=== PATIENT | female | born 1995 | race Caucasian/White ===

== ENCOUNTER 2019-04-20 11:52 | Emergency (ER) | payer BC ==
[2019-04-20] MEDS ORDERED: ONDANSETRON 4 MG (ODT) TAB ONE (14:30)
--- NOTE | 2019-04-20 14:51 | ER ---
Nurse's Notes [facility] Name: Alexa Luna Age: 23 yrs Sex: Female : 1995 Arrival Date: 04/20/2019 Time: 11:54 Bed 11 Private MD: Mark Holland H Diagnosis: Acute upper respiratory infection, unspecified;Nasal congestion Presentation: 04/20 12:02 Presenting complaint: Patient states: woke up at 2 am, nose congestion, no appetite, iw chills, body aches. Transition of care: patient was not received from another setting of care. Onset of symptoms was April 20, 2019. Risk Assessment: Do you want to hurt yourself or someone else? Patient reports no desire to harm self or others. Initial Sepsis Screen: Does the patient meet any 2 criteria? No. Patient's initial sepsis screen is negative. Does the patient have a suspected source of infection? No. Patient's initial sepsis screen is negative. Care prior to arrival: None. 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 - Social history:: Smoking status: Patient uses tobacco products, denies chronic smoking, but will smoke occasionally. - Ebola Screening: : Patient negative for fever greater than or equal to 101.5 degrees Fahrenheit, and additional compatible Ebola Virus Disease symptoms Patient denies exposure to infectious person Patient denies travel to an Ebola-affected area in the 21 days before illness onset No symptoms or risks identified at this time. Screenin:52 Abuse screen: Denies threats or abuse. Denies injuries from another. Nutritional iw screening: No deficits noted. Tuberculosis screening: No symptoms or risk factors identified. Fall Risk None identified. Assessment: 12:00 General: Appears in no apparent distress. Behavior is calm, cooperative. Pain: iw Complains of pain in head. Neuro: Level of Consciousness is awake, alert, obeys commands, Oriented to person, place, time, situation. Cardiovascular: Patient's skin is warm and dry. Respiratory: Respiratory effort is even, unlabored. 14:38 Reassessment: Patient appears in no apparent distress at this time. Patient and/or ss family updated on plan of care and expected duration. Pain level reassessed. Patient is alert, oriented x 3, equal unlabored respirations, skin warm/dry/pink. pt c/o mild nausea. Zofran given per OCT. Vital Signs: 12:04 BP 131 / 74; Pulse 98; Resp 16; Temp 98.6; Pulse Ox 100% on R/A; Weight 57.15 kg; iw Height 5 ft. 4 in. (162.56 cm); 12:04 Body Mass Index 21.63 (57.15 kg, 162.56 cm) iw ED Course: 11:54 Patient arrived in ED. ag5 11:56 Mark Holland DO is Private Physician. ag5 12:03 Triage completed. iw 12:04 Arm band placed on. iw 12:52 [facility]C [facility]. snw 12:52 Esequiel Sales MD is Attending Physician. snw 13:51 Amber Bingham, ISABEL is Primary Nurse. iw 14:38 Patient has correct armband on for positive identification. Bed in low position. Call ss light in reach. 14:38 No provider procedures requiring assistance completed. Patient did not have IV access ss during this emergency room visit. 14:49 Mark Holland DO is Referral Physician. snw Administered Medications: 14:29 Drug: Zofran 4 mg Route: PO; ss 15:10 Follow up: Response: No adverse reaction; Nausea is decreased ss 15:01 Drug: Afrin Drops (0.05 %) 1 sprays Route: Intranasal; Site: both nares; iw 15:01 Drug: ZyrTEC - Cetirizine 10 mg Route: PO; iw 15:10 Follow up: Response: Medication administered at discharge. ss 15:01 Drug: predniSONE 40 mg Route: PO; iw 15:10 Follow up: Response: Medication administered at discharge. ss 15:01 Drug: Pepcid 20 mg Route: PO; iw 15:10 Follow up: Response: Medication administered at discharge. ss Outcome: 14:50 Discharge ordered by MD. ferguson 15:09 Discharged to home ambulatory. ss 15:09 Condition: good 15:09 Instructed on discharge instructions, follow up and referral plans. medication usage, Demonstrated understanding of instructions, follow-up care, medications, Prescriptions given X 3. 15:10 Patient left the ED. Signatures: Jennifer Jane, PROJECT INTERNSHIP-C PROJECT INTERNSHIP-Csnw Amber Bingham RN RN Luz Juarez RN RN González Hogue ag5 Corrections: (The following items were deleted from the chart) 12:05 12:04 PSHx: None; iw iw 12:06 12:04 BP 131 / 74; Pulse 98bpm; [facility]
--- NOTE | 2019-04-20 14:51 | EDPHYS ---
Physician Documentation [facility] Name: Alexa Luna Age: 23 yrs Sex: Female : 1995 Arrival Date: 04/20/2019 Time: 11:54 Bed 11 Private MD: Mark Holland H ED Physician Esequiel Sales HPI: 04/20 15:34 This 23 yrs old Female presents to ER via Ambulatory with complaints of Cold snw Symptoms. 15:34 The patient or guardian reports cough, hoarse voice, sore throat, nasal congestion. snw Onset: The symptoms/episode began/occurred suddenly, yesterday. Modifying factors: The symptoms are alleviated by nothing. Associated signs and symptoms: Pertinent positives: nausea, rhinorrhea, sore throat, sinus pressure, congestion. Severity of symptoms: At their worst the symptoms were moderate. It is unknown whether or not the patient has had similar symptoms in the past. The patient has not recently seen a physician. 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 - Social history:: Smoking status: Patient uses tobacco products, denies chronic smoking, but will smoke occasionally. - Ebola Screening: : Patient negative for fever greater than or equal to 101.5 degrees Fahrenheit, and additional compatible Ebola Virus Disease symptoms Patient denies exposure to infectious person Patient denies travel to an Ebola-affected area in the 21 days before illness onset No symptoms or risks identified at this time. ROS: 15:33 Eyes: Negative for injury, pain, redness, and discharge. snw 15:33 Neck: Negative for injury, pain, and swelling, Cardiovascular: Negative for chest pain, palpitations, and edema. 15:33 Back: Negative for injury and pain, : Negative for injury, bleeding, discharge, and swelling, MS/Extremity: Negative for injury and deformity, Skin: Negative for injury, rash, and discoloration, Neuro: Negative for headache, weakness, numbness, tingling, and seizure. 15:33 Constitutional: Positive for body aches, fatigue, malaise. 15:33 ENT: Positive for nasal discharge, sinus congestion, sore throat. 15:33 Respiratory: Positive for cough. 15:33 Abdomen/GI: Positive for nausea. Exam: 14:55 Head/Face: Normocephalic, atraumatic. Eyes: Pupils equal round and reactive to light, snw extra-ocular motions intact. Lids and lashes normal. Conjunctiva and sclera are non-icteric and not injected. Cornea within normal limits. Periorbital areas with no swelling, redness, or edema. 14:55 Neck: Trachea midline, no thyromegaly or masses palpated, and no cervical lymphadenopathy. Supple, full range of motion without nuchal rigidity, or vertebral point tenderness. No Meningismus. Chest/axilla: Normal chest wall appearance and motion. Nontender with no deformity. No lesions are appreciated. Cardiovascular: Regular rate and rhythm with a normal S1 and S2. No gallops, murmurs, or rubs. Normal PMI, no JVD. No pulse deficits. Respiratory: Lungs have equal breath sounds bilaterally, clear to auscultation and percussion. No rales, rhonchi or wheezes noted. No increased work of breathing, no retractions or nasal flaring. Abdomen/GI: Soft, non-tender, with normal bowel sounds. No distension or tympany. No guarding or rebound. No evidence of tenderness throughout. Back: No spinal tenderness. No costovertebral tenderness. Full range of motion. Skin: Warm, dry with normal turgor. Normal color with no rashes, no lesions, and no evidence of cellulitis. MS/ Extremity: Pulses equal, no cyanosis. Neurovascular intact. Full, normal range of motion. Neuro: Awake and alert, GCS 15, oriented to person, place, time, and situation. Cranial nerves II-XII grossly intact. Motor strength 5/5 in all extremities. Sensory grossly intact. Cerebellar exam normal. Normal gait. Psych: Awake, alert, with orientation to person, place and time. Behavior, mood, and affect are within normal limits. 14:55 Constitutional: The patient appears alert, awake, anxious, uncomfortable. 14:55 ENT: TM's: erythema, that is mild, on the left, Nose: Nasal mucosa: edematous, erythematous, Mouth: is normal, Posterior pharynx: is normal, Voice: is hoarse. Vital Signs: 12:04 BP 131 / 74; Pulse 98; Resp 16; Temp 98.6; Pulse Ox 100% on R/A; Weight 57.15 kg; iw Height 5 ft. 4 in. (162.56 cm); 12:04 Body Mass Index 21.63 (57.15 kg, 162.56 cm) iw MDM: 13:59 Patient medically screened. snw 15:32 Data reviewed: vital signs, nurses notes. Data interpreted: Pulse oximetry: on room air snw is 100 %. Interpretation: normal. Counseling: I had a detailed discussion with the patient and/or guardian regarding: the historical points, exam findings, and any diagnostic results supporting the discharge/admit diagnosis, lab results, the need for outpatient follow up, to return to the emergency department if symptoms worsen or persist or if there are any questions or concerns that arise at home. Special discussion: Based on the history and exam findings, there is no indication for further emergent testing or inpatient evaluation. I discussed with the patient/guardian the need to see the primary care provider for further evaluation of the symptoms. 04/20 12:06 Order name: Flu; Complete Time: 13:28 04/20 12:06 Order name: Strep; Complete Time: 13:17 04/20 13:15 Order name: Throat Culture EDMS Administered Medications: 14:29 Drug: Zofran 4 mg Route: PO; ss 15:10 Follow up: Response: No adverse reaction; Nausea is decreased ss 15:01 Drug: Afrin Drops (0.05 %) 1 sprays Route: Intranasal; Site: both nares; iw 15:01 Drug: ZyrTEC - Cetirizine 10 mg Route: PO; iw 15:10 Follow up: Response: Medication administered at discharge. ss 15:01 Drug: predniSONE 40 mg Route: PO; iw 15:10 Follow up: Response: Medication administered at discharge. ss 15:01 Drug: Pepcid 20 mg Route: PO; iw 15:10 Follow up: Response: Medication administered at discharge. ss Disposition: 18:50 Co-signature as Attending Physician, Esequiel Sales MD. ma2 Disposition: 04/20/19 14:50 Discharged to Home. Impression: Acute upper respiratory infection, unspecified, Nasal congestion. - Condition is Stable. - Discharge Instructions: Upper Respiratory Infection, Adult, Cool Mist Vaporizer, Rehydration, Adult. - Prescriptions for Zyrtec 10 mg Oral Tablet - take 1 tablet by ORAL route once daily As needed; 20 tablet. Prednisone 20 mg Oral Tablet - take 2 tablet by ORAL route once daily for 5 days; 10 tablet. Pepcid 20 mg Oral Tablet - take 1 tablet by ORAL route once daily; 20 tablet. - Medication Reconciliation Form, Thank You Letter, Antibiotic Education, Prescription Opioid Use form. - Follow up: Mark Holland DO; When: 5 - 6 days; Reason: Recheck today's complaints, Continuance of care, Re-evaluation by your physician. Follow up: Emergency Department; When: As needed; Reason: Worsening of condition. Signatures: Dispatcher [employer] EDMS Jennifer Jane, MECHE-C SQUARING SHEAR OPERATOR-Csnw Amber Bingham RN RN iw Smirch, Shelby, RN RN Esequiel Sales MD MD ma2 Corrections: (The following items were deleted from the chart) 12:05 12:04 PSHx: None; [facility] 15:10 14:50 04/20/2019 14:50 Discharged to Home. Impression: Acute upper respiratory ss infection, unspecified; Nasal congestion. Condition is Stable. Forms are Medication Reconciliation Form, Thank You Letter, Antibiotic Education, Prescription Opioid Use. Follow up: Mark Holland; When: 5 - 6 days; Reason: Recheck today's complaints, Continuance of care, Re-evaluation by your physician. Follow up: Emergency Department; When: As needed; Reason: Worsening of condition. snw
[2019-04-20] MEDS ORDERED: CETIRIZINE HCL 5 MG TABLET ONE (14:56)
[2019-04-20] MEDS ORDERED: FAMOTIDINE 20 MG TAB ONE (14:56)
[2019-04-20] MEDS ORDERED: predniSONE 20 MG TAB ONE (14:56)
[2019-04-20] MEDS ORDERED: OXYMETAZOLINE HCL 0.05% 15ML NAS ONE (14:57)
[2019-04-20 15:20] VITALS: BP 131/74; TEMP 98.6; O2SAT 100
== END 2019-04-20 15:10 | disposition home or self-care (01) ==
LOC: ER 11:52
DX: J06.9 Acute upper respiratory infection, unspecified (principal); R09.81 Nasal congestion
CPT/HCPCS: 87070; 87081; 87804; 99283; J7512

== ENCOUNTER 2019-04-21 16:00 | Emergency (ER) | payer BC ==
[2019-04-21] MEDS ORDERED: NA CHLORIDE 0.9% 1,000 ML ONE (16:30)
[2019-04-21] MEDS ORDERED: ONDANSETRON 4 MG/2 ML VIAL ONE (16:30)
[2019-04-21 16:57] LABS: Basophils % 0.2 % (0-1.3); Hematocrit 39.8 % (36.0-45.0); Lymphocytes % 13.2 % (15.3-44.8); MPV 9.2 fL (7.6-11.3)
[2019-04-21 17:09] LABS: ALT/SGPT 24 U/L (12-78); AST/SGOT 14 U/L (15-37); Albumin 4.4 g/dL (3.4-5.0); Alkaline Phosphatase 83 U/L (45-117); BUN Blood Urea Nitrogen 13 mg/dL (7-18); Bicarbonate 31 mmol/L (21-32); Bilirubin Direct < 0.1 mg/dL (0-0.2); Bilirubin Total 0.2 mg/dL (0.2-1.0); Glucose Level 80 mg/dL (74-106); Lipase 126 U/L (73-393); Potassium 3.9 mmol/L (3.5-5.1); Protein, Total 7.8 g/dL (6.4-8.2); Sodium Level 142 mmol/L (136-145)
[2019-04-21 17:09] LABS: Urine Blood 2+ (NEG); Urine Glucose NEGATIVE (NEG); Urine Protein NEGATIVE (NEG); Urine Specific Gravity 1.015 (1.005-1.030); Urine pH 6.5 (5.0-7.0)
[2019-04-21] MEDS ORDERED: LORazepam 2 MG/ML VIAL ONE (18:50)
--- NOTE | 2019-04-21 19:20 | ER ---
Nurse's Notes [facility] Name: Alexa Luna Age: 23 yrs Sex: Female : 1995 Arrival Date: 04/21/2019 Time: 16:02 Bed 19 Private MD: Diagnosis: Acute pharyngitis;Acute serous otitis media;Vomiting Presentation: 04/21 16:03 Presenting complaint: N/V and productive cough with yellow sputum x 2 days. Not hb tolerating fluids. Transition of care: patient was not received from another setting of care. Onset of symptoms was April 19, 2019. Risk Assessment: Do you want to hurt yourself or someone else? Patient reports no desire to harm self or others. Initial Sepsis Screen: Does the patient meet any 2 criteria? No. Patient's initial sepsis screen is negative. Does the patient have a suspected source of infection? No. Patient's initial sepsis screen is negative. Care prior to arrival: None. 16:03 Method Of Arrival: Ambulatory hb 16:03 Acuity: MANJEET 3 hb Historical: - Allergies: 16:05 Seroquel; hb - Home Meds: 16:05 buprenorphine HCl 0.3 mg/mL injection soln [Active]; hb - PMHx: 16:05 Anxiety; hb - PSHx: 16:05 leg; hb - Immunization history:: Adult Immunizations up to date. - Social history:: Smoking status: Patient/guardian denies using tobacco. - Ebola Screening: : No symptoms or risks identified at this time. Screenin:20 Abuse screen: Denies threats or abuse. Denies injuries from another. Nutritional sg screening: No deficits noted. Tuberculosis screening: No symptoms or risk factors identified. Never had TB. Fall Risk None identified. Assessment: 16:20 General: Appears in no apparent distress. well groomed, well developed, well nourished, sg Behavior is calm, cooperative, appropriate for age. Pain: Complains of pain in suprapubic area Quality of pain is described as aching, crampy. Neuro: Level of Consciousness is awake, alert, obeys commands, Oriented to person, place, time, Speech is normal, Facial symmetry appears normal. Cardiovascular: Capillary refill is brisk in bilateral fingers Patient's skin is warm and dry. Chest pain is denied. Respiratory: Airway is patent Respiratory effort is even, unlabored, Respiratory pattern is regular, symmetrical. GI: Abdomen is round non-distended, Bowel sounds present X 4 quads. Reports lower abdominal pain, nausea. : No signs and/or symptoms were reported regarding the genitourinary system. EENT: No signs and/or symptoms were reported regarding the EENT system. Derm: Skin is pink, warm \T\ dry. Musculoskeletal: Circulation, motion, and sensation intact. Range of motion: intact in all extremities, Swelling absent. 18:50 General: Appears Behavior is agitated, crying, restless, orders received for 1 mg sg Ativan IVP per Schuyler LINDQUIST. 19:37 Reassessment: Patient appears in no apparent distress at this time. Patient and/or jb4 family updated on plan of care and expected duration. Pain level reassessed. Patient is alert, oriented x 3, equal unlabored respirations, skin warm/dry/pink. PT verbalized understanding of d/c and follow up instructions. Ambulated out of ED with steady gait with . Vital Signs: 16:04 BP 122 / 91; Pulse 90; Resp 16; Temp 98.9(O); Pulse Ox 100% on R/A; Weight 57.15 kg; hb Height 5 ft. 4 in. (162.56 cm); Pain 0/10; 18:21 BP 125 / 82; Pulse 51; Resp 14; Temp 98.5(TE); Pulse Ox 98% on R/A; mh5 18:43 Temp 98.7(O); mh5 19:37 BP 107 / 85; Pulse 85; Resp 16; Pulse Ox 100% on R/A; jb4 16:04 Body Mass Index 21.63 (57.15 kg, 162.56 cm) hb ED Course: 16:02 Patient arrived in ED. rg4 16:04 Triage completed. hb 16:04 Arm band placed on left wrist. hb 16:05 Patient has correct armband on for positive identification. Bed in low position. Call mh5 light in reach. Warm blanket given. Pulse ox on. NIBP on. 16:07 Guru Yeung PA is PHCP. [facility] 16:07 Isaias Pena MD is Attending Physician. [facility] 16:07 Torito Durán PA is PHCP. cp 16:46 Bai, Alvaro, RN is Primary Nurse. 16:52 No provider procedures requiring assistance completed. Initial lab(s) drawn, by ED sg staff, sent to lab. Inserted saline lock: 22 gauge in right antecubital area, using aseptic technique. Blood collected. 19:37 IV discontinued, intact, bleeding controlled, No redness/swelling at site. Pressure jb4 dressing applied. Administered Medications: 16:46 Drug: Zofran 4 mg Route: IVP; Site: right antecubital; sg 16:46 Drug: NS 0.9% 1000 ml Route: IV; Rate: 1 bolus; Site: right antecubital; sg 18:55 Drug: Ativan 1 mg Route: IVP; Site: right antecubital; sg 19:30 Follow up: Response: No adverse reaction; Marked relief of symptoms jb4 Outcome: 19:18 Discharge ordered by . estephanie 19:37 Discharged to home ambulatory, with family. jb4 19:37 Condition: stable 19:37 Discharge instructions given to patient, family, Instructed on discharge instructions, follow up and referral plans. medication usage, Demonstrated understanding of instructions, follow-up care, medications, Prescriptions given X 3. 19:39 Patient left the ED. jb4 Signatures: Alvaro Bai RN RN Guru Yeung PA PA jmm Page, Corey, PA PA cp Baxter, Heather, RN RN hb Garcia, Rubi [facility] Henry Fowler RN RN jb4 Martinez, Maria [facility]
--- NOTE | 2019-04-21 19:20 | EDPHYS ---
Physician Documentation [facility] Name: Alexa Luna Age: 23 yrs Sex: Female : 1995 Arrival Date: 04/21/2019 Time: 16:02 Bed 19 Private MD: ED Physician Isaias Pena HPI: 04/21 16:21 This 23 yrs old Female presents to ER via Ambulatory with complaints of jmm Vomiting, Weakness. 16:21 The patient presents to the emergency department with vomiting. Onset: The jmm symptoms/episode began/occurred gradually, 1 day(s) ago. The symptoms are aggravated by nothing. The symptoms are alleviated by nothing. This is a 23 year old female with a history of anxiety that presents to the ED with complaints of cough, congestion with vomiting beginning last night. Patient denies diarrhea. Denies abdominal pain. . Historical: - Allergies: 16:05 Seroquel; hb - Home Meds: 16:05 buprenorphine HCl 0.3 mg/mL injection soln [Active]; hb - PMHx: 16:05 Anxiety; hb - PSHx: 16:05 leg; hb - Immunization history:: Adult Immunizations up to date. - Social history:: Smoking status: Patient/guardian denies using tobacco. - Ebola Screening: : No symptoms or risks identified at this time. ROS: 16:21 Constitutional: Negative for fever, chills, and weight loss, Cardiovascular: Negative jmm for chest pain, palpitations, and edema, Respiratory: Negative for shortness of breath, cough, wheezing, and pleuritic chest pain. 16:21 Abdomen/GI: Positive for vomiting. 16:21 All other systems are negative. Exam: 16:21 Head/Face: atraumatic. Eyes: EOMI, no conjunctival erythema appreciated ENT: Moist jmm Mucus Membranes Neck: Trachea midline, Supple Chest/axilla: Normal chest wall appearance and motion. Cardiovascular: Regular rate and rhythm. No edema appreciated Respiratory: Normal respirations, no respiratory distress appreciated 16:21 Skin: General appearance color normal MS/ Extremity: Moves all extremities, no obvious deformities appreciated, no edema noted to the lower extremities Neuro: Awake and alert, normal gait Psych: Behavior is normal, Mood is normal, Patient is cooperative and pleasant 16:21 Constitutional: The patient appears in no acute distress, alert, awake. 16:21 Abdomen/GI: Inspection: abdomen appears normal, Bowel sounds: normal, Palpation: abdomen is soft and non-tender, in all quadrants, soft. 16:21 Back: pain, that is moderate. 19:17 ENT: TM's: bulging, on the left, erythema. [facility] Vital Signs: 16:04 BP 122 / 91; Pulse 90; Resp 16; Temp 98.9(O); Pulse Ox 100% on R/A; Weight 57.15 kg; hb Height 5 ft. 4 in. (162.56 cm); Pain 0/10; 18:21 BP 125 / 82; Pulse 51; Resp 14; Temp 98.5(TE); Pulse Ox 98% on R/A; mh5 18:43 Temp 98.7(O); mh5 19:37 BP 107 / 85; Pulse 85; Resp 16; Pulse Ox 100% on R/A; jb4 16:04 Body Mass Index 21.63 (57.15 kg, 162.56 cm) hb MDM: 16:16 Patient medically screened. [facility] 19:17 Data reviewed: vital signs, nurses notes. Counseling: I had a detailed discussion with [facility] the patient and/or guardian regarding: the historical points, exam findings, and any diagnostic results supporting the discharge/admit diagnosis, lab results, the need for outpatient follow up, to return to the emergency department if symptoms worsen or persist or if there are any questions or concerns that arise at home. ED course: Patient is alert and non toxic in appearance in the ED. Patient tolerates PO in the ED. Patient advised to follow up with pcp and otherwise given strict return precautions. . 04/21 16:20 Order name: Basic Metabolic Panel; Complete Time: 17:23 [facility] 04/21 16:20 Order name: CBC with Diff; Complete Time: 17:23 [facility] 04/21 16:20 Order name: Creatinine for Radiology; Complete Time: 17:23 [facility] 04/21 16:20 Order name: Hepatic Function; Complete Time: 17:23 [facility] 04/21 16:20 Order name: Lipase; Complete Time: 17:23 [facility] 04/21 16:53 Order name: Urine Dipstick--Ancillary (enter results); Complete Time: 17:23 nv 04/21 16:20 Order name: IV Saline Lock; Complete Time: 16:49 [facility] 04/21 16:20 Order name: Labs collected and sent; Complete Time: 16:49 [facility] 04/21 16:20 Order name: Urine Dipstick-Ancillary (obtain specimen); Complete Time: 17:06 [facility] Administered Medications: 16:46 Drug: Zofran 4 mg Route: IVP; Site: right antecubital; sg 16:46 Drug: NS 0.9% 1000 ml Route: IV; Rate: 1 bolus; Site: right antecubital; sg 18:55 Drug: Ativan 1 mg Route: IVP; Site: right antecubital; sg 19:30 Follow up: Response: No adverse reaction; Marked relief of symptoms jb4 Disposition: 04/21/19 19:18 Discharged to Home. Impression: Acute pharyngitis, Acute serous otitis media, Vomiting. - Condition is Stable. - Discharge Instructions: Otitis Media, Adult, Nausea and Vomiting, Adult, Pharyngitis. - Prescriptions for cefdinir 300 mg Oral capsule - take 1 capsule by ORAL route every 12 hours; 20 capsule. Medrol (Sukhjinder) 4 mg Oral Tablets, Dose Pack - take 1 tablet by ORAL route as directed - follow package instructions; 1 packet. promethazine 6.25 mg/5 mL Oral Syrup - take 10 milliliters by ORAL route 3 times per day As needed; 200 milliliter. - Medication Reconciliation Form, Thank You Letter, Antibiotic Education, Prescription Opioid Use, Family Work Release form. - Follow up: Private Physician; When: 2 - 3 days; Reason: Recheck today's complaints, Continuance of care, Re-evaluation by your physician. Addendum: 04/22/2019 20:55 Co-signature as Attending Physician, Isaias Pena MD. r n Signatures: Dispatcher [employer] EDMS Alvaro Bai RN RN sg Guru Yeung PA PA [facility] Isaias Pena MD MD rn Baxter, Heather, RN RN hb Bryson, James, RN RN jb4 Corrections: (The following items were deleted from the chart) 04/21 19:39 19:18 04/21/2019 19:18 Discharged to Home. Impression: Acute pharyngitis; Acute serous jb4 otitis media; Vomiting. Condition is Stable. Forms are Medication Reconciliation Form, Thank You Letter, Antibiotic Education, Prescription Opioid Use. Follow up: Private Physician; When: 2 - 3 days; Reason: Recheck today's complaints, Continuance of care, Re-evaluation by your physician. estephanie
[2019-04-21 20:22] VITALS: TEMP 98.7
[2019-04-21 20:23] VITALS: BP 107/85; O2SAT 100
== END 2019-04-21 19:39 | disposition home or self-care (01) ==
LOC: ER 16:00
DX: H65.02 Acute serous otitis media, left ear (principal); J02.9 Acute pharyngitis, unspecified; F41.9 Anxiety disorder, unspecified; Z88.8 Allergy status to other drugs, medicaments and biological substances
CPT/HCPCS: 85025; 80048; 36415; 80076; 81003; 83690; 96375; 96374; 99284; J7030; J2405

== ENCOUNTER 2019-06-30 23:25 | Emergency (ER) | payer BC ==
--- OUTSIDE RECORDS SUMMARY | 2019-06-30 23:27 | XMS REPORT ---
:1995 [facility] Address [address] [place] [address] Dr. Telles [address] [place] [id number] Care Team Providers Name Role Phone Unavailable Unavailable Unavailable Problems This patient has no known problems. Allergies, Adverse Reactions, Alerts This patient has no known allergies or adverse reactions. Medications This patient has no known medications. Encounters Start End Encounter Admission Attending Care Care Encounter Date/Time Date/Time Type Type Clinicians Facility Department ID 2019-06-08 2019-06-08 Emergency E [id number] 20:13:00 20:13:00
--- NOTE | 2019-07-01 00:07 | ER ---
Nurse's Notes [facility] Name: Alexa Luna Age: 23 yrs Sex: Female : 1995 Arrival Date: 06/30/2019 Time: 23:30 Bed 20 Private MD: Diagnosis: Cutaneous abscess of buttock Presentation: 06/30 23:57 Presenting complaint: Patient states: Redness and pain on right butt cheek that started wh last night. Transition of care: patient was not received from another setting of care. Onset of symptoms was June 29, 2019. Risk Assessment: Do you want to hurt yourself or someone else? Patient reports no desire to harm self or others. Initial Sepsis Screen: Does the patient meet any 2 criteria? No. Patient's initial sepsis screen is negative. Does the patient have a suspected source of infection? No. Patient's initial sepsis screen is negative. Care prior to arrival: None. 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 - Social history:: Smoking status: Patient uses tobacco products, denies chronic smoking, but will smoke occasionally. - Ebola Screening: : Patient negative for fever greater than or equal to 101.5 degrees Fahrenheit, and additional compatible Ebola Virus Disease symptoms Patient denies exposure to infectious person. Screenin/23 00:01 Abuse screen: Denies threats or abuse. Denies injuries from another. Nutritional screening: No deficits noted. Tuberculosis screening: No symptoms or risk factors identified. Fall Risk None identified. Assessment: 06/30 23:59 General: Appears in no apparent distress. Behavior is calm, cooperative, appropriate for age. Pain: Complains of pain in right gluteus ralph Pain does not radiate. Pain began 1 day ago. Neuro: Level of Consciousness is awake, alert, obeys commands, Oriented to person, place, time, situation, Appropriate for age. Cardiovascular: Capillary refill < 3 seconds. Respiratory: Airway is patent Respiratory effort is even, unlabored, Respiratory pattern is regular, symmetrical. GI: Abdomen is flat, non-distended. : No signs and/or symptoms were reported regarding the genitourinary system. EENT: No signs and/or symptoms were reported regarding the EENT system. Derm: Skin is intact, is healthy with good turgor, Skin is pink, warm \T\ dry. normal. Musculoskeletal: Circulation, motion, and sensation intact. Vital Signs: 23:40 BP 112 / 61; Pulse 99; Resp 18; Temp 98.0(O); Pulse Ox 100% on R/A; oe ED Course: 23:30 Patient arrived in ED. cf2 23:42 Andre Vora is Primary Nurse. 23:58 Triage completed. 07/01 00:00 Carole Salas FNP-C is PHCP. 00:00 Torito Taveras MD is Attending Physician. 00:01 Arm band placed on. 00:01 Patient has correct armband on for positive identification. Bed in low position. Call light in reach. Side rails up X 1. Pulse ox on. NIBP on. 00:18 No provider procedures requiring assistance completed. Patient did not have IV access during this emergency room visit. Administered Medications: 00:15 Drug: Bactrim (160 mg-800 mg (DS) 1 tablet Route: PO; 00:18 Follow up: Response: No adverse reaction Outcome: 00:06 Discharge ordered by . 00:18 Discharged to home ambulatory. 00:18 Condition: stable 00:18 Discharge instructions given to patient, Instructed on discharge instructions, follow up and referral plans. medication usage, POC Skin Abscess Demonstrated understanding of instructions, follow-up care, medications, wound care, POC Prescriptions given X 1. 00:19 Patient left the ED. Signatures: Carole Salas FNP-C FNP-Ilir Mercedes Andre Vora Marilynn Haddad cf2
--- NOTE | 2019-07-01 00:08 | EDPHYS ---
Physician Documentation [facility] Name: Alexa Luna Age: 23 yrs Sex: Female : 1995 Arrival Date: 06/30/2019 Time: 23:30 Bed 20 Private MD: ED Physician Torito Taveras HPI: 07/01 00:42 This 23 yrs old Female presents to ER via Ambulatory with complaints of Bump kb on Butt. 00:42 The patient presents with an abscess of the right gluteus ralph. Description: kb erythematous, swollen. Onset: The symptoms/episode began/occurred 3 day(s) ago. Possible cause(s): unknown. Associated signs and symptoms: Pertinent positives: erythema. Modifying factors: the symptoms are alleviated by nothing, the symptoms are aggravated by pressure, touching. Severity of symptoms: At their worst the symptoms were mild, in the emergency department the symptoms are unchanged. The patient has not experienced similar symptoms in the past. The patient has not recently seen a physician. 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 - Social history:: Smoking status: Patient uses tobacco products, denies chronic smoking, but will smoke occasionally. - Ebola Screening: : Patient negative for fever greater than or equal to 101.5 degrees Fahrenheit, and additional compatible Ebola Virus Disease symptoms Patient denies exposure to infectious person. ROS: 07/01 00:38 Constitutional: Negative for fever, chills, and weight loss, Neck: Negative for injury, kb pain, and swelling, Cardiovascular: Negative for chest pain, palpitations, and edema, Respiratory: Negative for shortness of breath, cough, wheezing, and pleuritic chest pain, Abdomen/GI: Negative for abdominal pain, nausea, vomiting, diarrhea, and constipation, Back: Negative for injury and pain, MS/Extremity: Negative for injury and deformity, Neuro: Negative for headache, weakness, numbness, tingling, and seizure. Skin: Positive for abscess, of the right gluteus ralph. Exam: 00:38 Constitutional: This is a well developed, well nourished patient who is awake, alert, kb and in no acute distress. Head/Face: Normocephalic, atraumatic. Neck: Trachea midline, no thyromegaly or masses palpated, and no cervical lymphadenopathy. Supple, full range of motion without nuchal rigidity, or vertebral point tenderness. No Meningismus. Chest/axilla: Normal chest wall appearance and motion. Nontender with no deformity. No lesions are appreciated. Cardiovascular: Regular rate and rhythm with a normal S1 and S2. No gallops, murmurs, or rubs. Normal PMI, no JVD. No pulse deficits. Respiratory: Lungs have equal breath sounds bilaterally, clear to auscultation and percussion. No rales, rhonchi or wheezes noted. No increased work of breathing, no retractions or nasal flaring. Abdomen/GI: Soft, non-tender, with normal bowel sounds. No distension or tympany. No guarding or rebound. No evidence of tenderness throughout. MS/ Extremity: Pulses equal, no cyanosis. Neurovascular intact. Full, normal range of motion. Neuro: Awake and alert, GCS 15, oriented to person, place, time, and situation. Cranial nerves II-XII grossly intact. Motor strength 5/5 in all extremities. Sensory grossly intact. Cerebellar exam normal. Normal gait. 00:38 Skin: abscess, that is small, of the right gluteus ralph, with induration. Vital Signs: 06/30 23:40 BP 112 / 61; Pulse 99; Resp 18; Temp 98.0(O); Pulse Ox 100% on R/A; oe MDM: 07/01 00:01 Patient medically screened. kb 00:05 Data reviewed: vital signs, nurses notes. Data interpreted: Pulse oximetry: on room air kb is 100 %. Interpretation: normal. Counseling: I had a detailed discussion with the patient and/or guardian regarding: the historical points, exam findings, and any diagnostic results supporting the discharge/admit diagnosis, the need for outpatient follow up, a family practitioner, to return to the emergency department if symptoms worsen or persist or if there are any questions or concerns that arise at home. Administered Medications: 00:15 Drug: Bactrim (160 mg-800 mg (DS) 1 tablet Route: PO; wh 00:18 Follow up: Response: No adverse reaction Disposition: 09:02 Co-signature as Attending Physician, Torito Taveras MD I agree with the assessment and [facility] plan of care. Disposition: 07/01/19 00:06 Discharged to Home. Impression: Cutaneous abscess of buttock. - Condition is Stable. - Discharge Instructions: Skin Abscess, [id number]. - Prescriptions for Bactrim DS 800- 160 mg Oral Tablet - take 1 tablet by ORAL route every 12 hours for 10 days; 20 tablet. - Medication Reconciliation Form, Thank You Letter, Antibiotic Education, Prescription Opioid Use form. - Follow up: Emergency Department; When: As needed; Reason: Worsening of condition. Follow up: Private Physician; When: 2 - 3 days; Reason: Recheck today's complaints, Continuance of care, Re-evaluation by your physician. Signatures: Carole Salas, DERMATOLOGIST AND DERMATOPATHOLOGIST-C DERMATOLOGIST AND DERMATOPATHOLOGIST-Torito Willams MD MD cha Hab[place], Winsy Corrections: (The following items were deleted from the chart) 00:19 00:06 07/01/2019 00:06 Discharged to Home. Impression: Cutaneous abscess of buttock. Condition is Stable. Forms are Medication Reconciliation Form, Thank You Letter, Antibiotic Education, Prescription Opioid Use. Follow up: Emergency Department; When: As needed; Reason: Worsening of condition. Follow up: Private Physician; When: 2 - 3 days; Reason: Recheck today's complaints, Continuance of care, Re-evaluation by your physician. kb
[2019-07-01] MEDS ORDERED: SMZ./TMP. 800/160 MG TABLET ONE (00:16)
[2019-07-01 00:50] VITALS: BP 112/61; TEMP 98; O2SAT 100
== END 2019-07-01 00:19 | disposition home or self-care (01) ==
LOC: ER 23:25
DX: L02.31 Cutaneous abscess of buttock (principal); F41.9 Anxiety disorder, unspecified; Z88.8 Allergy status to other drugs, medicaments and biological substances
CPT/HCPCS: 99283

== ENCOUNTER 2019-09-09 04:10 | Emergency (ER) | payer BC ==
[2019-09-09] MEDS ORDERED: NA CHLORIDE 0.9% 1,000 ML ONE (04:34)
[2019-09-09] MEDS ORDERED: LORAZEPAM 1 MG TABLET ONE (04:34)
[2019-09-09] MEDS ORDERED: ONDANSETRON 4 MG/2 ML VIAL ONE (04:34)
--- OUTSIDE RECORDS SUMMARY | 2019-09-09 04:50 | XMS REPORT ---
:1995 [facility] Address [address] [place] [address] Dr. Telles [address] [place] [id number] Care Team Providers Name Role Phone Unavailable [...]
[2019-09-09 04:55] LABS: Absolute Lymphocytes (CBC) 1.8 K/uL (0.7-4.9); Basophils % 0.3 % (0-1.3); Hematocrit 43.6 % (36.0-45.0); Lymphocytes % 15.8 % (15.3-44.8); MPV 8.9 fL (7.6-11.3); RBC Red Blood Cell Count 4.96 M/uL (3.86-4.86)
[2019-09-09 05:03] LABS: Barbiturates NEGATIVE (NEGATIVE); Benzodiazepines NEGATIVE (NEGATIVE); Cocaine NEGATIVE (NEGATIVE); METHAMPHETAM NEGATIVE (NEGATIVE); Methadone NEGATIVE (NEGATIVE); Opiates NEGATIVE (NEGATIVE); Phencyclidine NEGATIVE (NEGATIVE); THC Cannibis POSITIVE (NEGATIVE)
[2019-09-09 05:07] LABS: BUN Blood Urea Nitrogen 8 mg/dL (7-18); Bicarbonate 28 mmol/L (21-32); Glucose Level 92 mg/dL (74-106); Potassium 3.8 mmol/L (3.5-5.1); Sodium Level 140 mmol/L (136-145)
[2019-09-09 05:19] LABS: Urine Blood NEGATIVE (NEG); Urine Glucose NEGATIVE (NEG); Urine Protein NEGATIVE (NEG); Urine Specific Gravity 1.015 (1.005-1.030)
--- NOTE | 2019-09-09 06:11 | EDPHYS ---
Physician Documentation [facility] Name: Alexa Luna Age: 24 yrs Sex: Female : 1995 Arrival Date: 09/09/2019 Time: 04:14 Bed 4 Private MD: ED Physician Carlo iRos HPI: 09/09 06:51 This 24 yrs old Female presents to ER via Ambulatory with complaints of kdr Withdraw Symptoms. 06:51 The patient has been off of her Suboxone for about three days and is feeling anxious. kdr She does not want to take the medication any more. She had tried to quit before for a period of about six months and had about a two weeks of withdrawal s/s. Onset: The symptoms/episode began/occurred gradually, 3 day(s) ago. Severity of symptoms: At their worst the symptoms were moderate in the emergency department the symptoms have improved mildly. The patient has experienced a previous episode, last year. The patient has not recently seen a physician. 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 - Coronavirus screen:: The patient has NOT traveled to [place], [place], or [place] in the past 14 days. Proceed with normal triage process as indicated. - Social history:: Smoking status: Patient denies any tobacco usage or history of. - Ebola Screening: : No symptoms or risks identified at this time. ROS: 06:51 Constitutional: Negative for fever, chills, and weight loss, Eyes: Negative for injury, kdr pain, redness, and discharge, ENT: Negative for injury, pain, and discharge, Neck: Negative for injury, pain, and swelling, Cardiovascular: Negative for chest pain, palpitations, and edema, Respiratory: Negative for shortness of breath, cough, wheezing, and pleuritic chest pain, Abdomen/GI: Negative for abdominal pain, nausea, vomiting, diarrhea, and constipation, Back: Negative for injury and pain, : Negative for injury, bleeding, discharge, and swelling, MS/Extremity: Negative for injury and deformity, Skin: Negative for injury, rash, and discoloration, Allergy/Immunology: Negative for hives, rash, and allergies, Endocrine: Negative for neck swelling, polydipsia, polyuria, polyphagia, and marked weight changes, Hematologic/Lymphatic: Negative for swollen nodes, abnormal bleeding, and unusual bruising. 06:51 Neuro: Positive for dizziness, weakness, Negative for altered mental status, hearing loss, loss of consciousness, numbness, seizure activity, speech changes, syncope, near syncope, tingling, tinnitus, tremor, visual changes. 06:51 Psych: Positive for anxiety, insomnia, Negative for depression, drug dependence, alcohol dependence, auditory hallucinations, visual hallucinations, homicidal ideation, suicide gesture, suicidal ideation. Exam: 06:51 Constitutional: This is a well developed, well nourished patient who is awake, alert, kdr and in no acute distress. Head/Face: Normocephalic, atraumatic. Eyes: Pupils equal round and reactive to light, extra-ocular motions intact. Lids and lashes normal. Conjunctiva and sclera are non-icteric and not injected. Cornea within normal limits. Periorbital areas with no swelling, redness, or edema. Neck: Trachea midline, no thyromegaly or masses palpated, and no cervical lymphadenopathy. Supple, full range of motion without nuchal rigidity, or vertebral point tenderness. No Meningismus. Chest/axilla: Normal chest wall appearance and motion. Nontender with no deformity. No lesions are appreciated. Cardiovascular: Regular rate and rhythm with a normal S1 and S2. No gallops, murmurs, or rubs. Normal PMI, no JVD. No pulse deficits. Respiratory: Lungs have equal breath sounds bilaterally, clear to auscultation and percussion. No rales, rhonchi or wheezes noted. No increased work of breathing, no retractions or nasal flaring. Abdomen/GI: Soft, non-tender, with normal bowel sounds. No distension or tympany. No guarding or rebound. No evidence of tenderness throughout. Back: No spinal tenderness. No costovertebral tenderness. Full range of motion. Skin: Warm, dry with normal turgor. Normal color with no rashes, no lesions, and no evidence of cellulitis. MS/ Extremity: Pulses equal, no cyanosis. Neurovascular intact. Full, normal range of motion. Neuro: Awake and alert, GCS 15, oriented to person, place, time, and situation. Cranial nerves II-XII grossly intact. Motor strength 5/5 in all extremities. Sensory grossly intact. Cerebellar exam normal. Normal gait. Psych: Awake, alert, with orientation to person, place and time. Behavior, mood, and affect are within normal limits. Vital Signs: 04:30 BP 137 / 95; Pulse 105; Resp 16 S; Temp 97.9(O); Pulse Ox 99% on R/A; Weight 63.5 kg bb (R); Height 5 ft. 4 in. (162.56 cm) (R); 05:06 BP 135 / 87; Pulse 87; Resp 16; Pulse Ox 100% on R/A; Pain 0/10; aa1 06:20 BP 131 / 89; Pulse 84; Resp 16; Temp 97.6; Pulse Ox 99% on R/A; Pain 0/10; aa1 04:30 Body Mass Index 24.03 (63.50 kg, 162.56 cm) MDM: 06:09 Patient medically screened. kdr 06:57 Data reviewed: vital signs, nurses notes, lab test result(s), radiologic studies. kdr Counseling: I had a detailed discussion with the patient and/or guardian regarding: the historical points, exam findings, and any diagnostic results supporting the discharge/admit diagnosis, lab results, radiology results, the need for outpatient follow up. ED course: The patient improved with the interventions given. She still felt anxious but was feeling better. She was happy with the care provided and the plan for discharge and follow-up. 09/09 04:29 Order name: CBC with Diff; Complete Time: 06:08 kdr 09/09 04:29 Order name: Chem 7; Complete Time: 06:08 kdr 09/09 04:29 Order name: Urine Drug Screen; Complete Time: 06:08 kdr 09/09 04:29 Order name: ETOH Level; Complete Time: 06:08 [facility] 09/09 04:51 Order name: Urine Dipstick--Ancillary (enter results); Complete Time: 06:08 2 09/09 04:51 Order name: Urine --Ancillary (enter results); Complete Time: 06:08 [facility] 09/09 04:29 Order name: Urine Test (obtain specimen); Complete Time: 04:51 kdr Administered Medications: 04:35 Drug: Ativan 1 mg Route: PO; aa1 05:35 Follow up: Response: No adverse reaction; Marked relief of symptoms aa1 04:40 Drug: NS 0.9% 1000 ml Route: IV; Rate: 1 bolus; Site: left forearm; aa1 05:30 Follow up: IV Status: Completed infusion; IV Intake: 1000ml aa1 04:40 Drug: Zofran 4 mg Route: IVP; Site: left forearm; aa1 05:40 Follow up: Response: No adverse reaction; Nausea is decreased aa1 Disposition: 09/09/19 06:09 Discharged to Home. Impression: Anxiety disorder due to known physiological condition, Other psychoactive substance dependence with withdrawal, uncomplicated. - Condition is Stable. - Discharge Instructions: Benzodiazepine Withdrawal. - Prescriptions for Ativan 1 mg Oral Tablet - take 1 tablet by ORAL route every 8 hours As needed; 4 tablet. - Medication Reconciliation Form, Thank You Letter form. - Follow up: Private Physician; When: 2 - 3 days; Reason: If symptoms return, Further diagnostic work-up, Recheck today's complaints, Continuance of care, Re-evaluation by your physician. - Problem is an acute exacerbation. - Symptoms have improved. Signatures: Dispatcher [employer] EDLinda Chauhan RN RN aa1 Carlo Rios MD MD kdr Jolie Hankins RN RN bb Corrections: (The following items were deleted from the chart) 06:21 06:09 09/09/2019 06:09 Discharged to Home. Impression: Anxiety disorder due to known aa1 physiological condition; Other psychoactive substance dependence with withdrawal, uncomplicated. Condition is Stable. Forms are Medication Reconciliation Form, Thank You Letter, Antibiotic Education, Prescription Opioid Use. Follow up: Private Physician; When: 2 - 3 days; Reason: If symptoms return, Further diagnostic work-up, Recheck today's complaints, Continuance of care, Re-evaluation by your physician. Problem is an acute exacerbation. Symptoms have improved. kdr
--- NOTE | 2019-09-09 06:11 | ER ---
Nurse's Notes [facility] Name: Alexa Luna Age: 24 yrs Sex: Female : 1995 Arrival Date: 09/09/2019 Time: 04:14 Bed 4 Private MD: Diagnosis: Anxiety disorder due to known physiological condition;Other psychoactive substance dependence with withdrawal, uncomplicated Presentation: 09/09 04:27 Presenting complaint: Patient states: she is having withdrawal symptoms x 3 days of bb vomiting, inability to sleep after stopping her Subutex for addiction suddenly. Pt states she does not want to take Subutex anymore and thought she could ride out her symptoms but she can't. Transition of care: patient was not received from another setting of care. Onset of symptoms was September 04, 2019. Risk Assessment: Do you want to hurt yourself or someone else? Patient reports no desire to harm self or others. Initial Sepsis Screen: Does the patient meet any 2 criteria? No. Patient's initial sepsis screen is negative. Does the patient have a suspected source of infection? No. Patient's initial sepsis screen is negative. Care prior to arrival: None. 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 - Coronavirus screen:: The patient has NOT traveled to [place], [place], or [place] in the past 14 days. Proceed with normal triage process as indicated. - Social history:: Smoking status: Patient denies any tobacco usage or history of. - Ebola Screening: : No symptoms or risks identified at this time. Screenin:25 Abuse screen: Denies threats or abuse. Denies injuries from another. Nutritional aa1 screening: No deficits noted. Tuberculosis screening: No symptoms or risk factors identified. Fall Risk None identified. Assessment: 04:25 General: Appears in no apparent distress. comfortable, Behavior is calm, cooperative, aa1 appropriate for age. Pain: Denies pain. Neuro: Level of Consciousness is awake, alert, obeys commands, Oriented to person, place, time, situation, Moves all extremities. Full function Gait is steady, Speech is normal, Pupils are PERRLA. Cardiovascular: Denies chest pain, diaphoresis, palpitations, shortness of breath, Heart tones S1 S2 present Rhythm is regular. Respiratory: Airway is patent Respiratory effort is even, unlabored, Respiratory pattern is regular, symmetrical. GI: Reports intolerance of fluids, intolerance of food, nausea, vomiting, Patient currently denies abdominal pain, diarrhea. : No signs and/or symptoms were reported regarding the genitourinary system. EENT: No signs and/or symptoms were reported regarding the EENT system. Derm: Skin is intact, is healthy with good turgor, Skin is pink, warm \T\ dry. Musculoskeletal: Circulation, motion, and sensation intact. Capillary refill < 3 seconds. 05:11 Reassessment: Patient appears in no apparent distress at this time. Patient and/or aa1 family updated on plan of care and expected duration. Pain level reassessed. Patient is alert, oriented x 3, equal unlabored respirations, skin warm/dry/pink. Awaiting lab results. 06:20 Reassessment: Patient appears in no apparent distress at this time. Patient is alert, aa1 oriented x 3, equal unlabored respirations, skin warm/dry/pink. Discussed d/c \T\ f/u instructions with pt; denies questions or concerns at this time. Ambulatory to lobby with steady gait. Patient states symptoms have improved. Vital Signs: 04:30 BP 137 / 95; Pulse 105; Resp 16 S; Temp 97.9(O); Pulse Ox 99% on R/A; Weight 63.5 kg bb (R); Height 5 ft. 4 in. (162.56 cm) (R); 05:06 BP 135 / 87; Pulse 87; Resp 16; Pulse Ox 100% on R/A; Pain 0/10; aa1 06:20 BP 131 / 89; Pulse 84; Resp 16; Temp 97.6; Pulse Ox 99% on R/A; Pain 0/10; aa1 04:30 Body Mass Index 24.03 (63.50 kg, 162.56 cm) ED Course: 04:14 Patient arrived in ED. cl3 04:15 Carlo Rios MD is Attending Physician. kdr 04:23 iLnda Hayes, RN is Primary Nurse. aa1 04:25 Patient has correct armband on for positive identification. Placed in gown. Bed in low aa1 position. Call light in reach. Pulse ox on. NIBP on. 04:29 Triage completed. bb 04:30 Arm band placed on Patient placed in an exam room, on a stretcher, on pulse oximetry. bb 04:40 Initial lab(s) drawn, by me, sent to lab. Urine collected: clean catch specimen, clear. aa1 Inserted saline lock: 20 gauge in left forearm, using aseptic technique. Blood collected. 06:20 No provider procedures requiring assistance completed. Patient did not have IV access aa1 during this emergency room visit. Administered Medications: 04:35 Drug: Ativan 1 mg Route: PO; aa1 05:35 Follow up: Response: No adverse reaction; Marked relief of symptoms aa1 04:40 Drug: NS 0.9% 1000 ml Route: IV; Rate: 1 bolus; Site: left forearm; aa1 05:30 Follow up: IV Status: Completed infusion; IV Intake: 1000ml aa1 04:40 Drug: Zofran 4 mg Route: IVP; Site: left forearm; aa1 05:40 Follow up: Response: No adverse reaction; Nausea is decreased aa1 Intake: 05:30 IV: 1000ml; Total: 1000ml. aa1 Outcome: 06:09 Discharge ordered by . kdr 06:20 Discharged to home ambulatory, with significant other. aa1 06:20 Condition: good 06:20 Discharge instructions given to patient, Instructed on discharge instructions, follow up and referral plans. medication usage, Demonstrated understanding of instructions, follow-up care, medications, Prescriptions given X 1. 06:21 Patient left the ED. aa1 Signatures: Linda Hayes, RN RN aa1 Carlo Rios MD MD kdr Ballard, Brenda, RN RN Joselin Jimenez cl3
[2019-09-09 06:31] VITALS: BP 131/89; TEMP 97.6; O2SAT 99
== END 2019-09-09 06:21 | disposition home or self-care (01) ==
LOC: ER 04:10
DX: F06.4 Anxiety disorder due to known physiological condition (principal); F19.239 Other psychoactive substance dependence with withdrawal, unspecified; Z88.8 Allergy status to other drugs, medicaments and biological substances
CPT/HCPCS: 96361; 85025; 80048; 36415; 80320; 81025; 80307 ×8; 81003; 96374; 99284; J7030; J2405

== ENCOUNTER 2019-09-28 17:45 | Emergency (ER) | payer BC ==
--- OUTSIDE RECORDS SUMMARY | 2019-09-28 17:48 | XMS REPORT ---
:1995 [facility] Address [address] [place] [address] Care Team Providers Name Role Phone Unavailable Unavailable Unavailable Payers Payer Name Policy Type Policy Number Effective Date Expiration Date Problems This patient has no known problems. Allergies, Adverse Reactions, Alerts Allergy Name Allergy Status Severity Reaction(s) Onset Inactive Treating Comments Type Date Date Clinician quetiapine DA Active MO 2019-09 00:00:0 0 Medications This patient has no known medications. Encounters Start End Encounter Admission Attending Care Care Encounter Date/Time Date/Time Type Type Clinicians Facility Department ID 2019-06-08 2019-06-08 Emergency [facility] [id number] 20:13:00 20:13:00 Results Test Description Test Time Test Comments Text Results Atomic Results Result Comments - CT ABD PELVIS W/CONT 2019-09-25 19:16:00 Name: HERRERA BALDWIN [facility] : 1995 Age/S: 24 / F [id number] Unit #: [id number] Loc: [place] [address] Phys: Evelyn Casey MD Acct: [id number] Dis Date: Status: REG ER PHONE #: [phone] Exam Date: 09/25/2019 185 FAX #: Reason: abdominal pain EXAMS: CPT: [id number] CT ABD PELVIS W/CONT 13706 Location code: B2 CT Abdomen and Pelvis with Contrast Indication: abdominal pain. Comparison: None. Technical factors: Axial images were obtained with contrast. Coronal and sagittal reconstruction. This exam was performed according to our departmental dose-optimization program, which includes automated exposure control, adjustment of the mA and/or kV according to patient size and/or use of iterative reconstruction technique. Contrast: 100 mL Isovue-300 IV. Creatinine 1.0. GFR greater than 60. Findings: Lung bases are clear with no pleural effusion. The liver is normal in appearance. The biliary ducts are not dilated. No focal lesion is seen. The gallbladder is normal in appearance. The spleen is unremarkable. The adrenal glands are unremarkable. The pancreas is unremarkable. Kidneys are normal in appearance. No hydronephrosis or hydroureter. IVC is unremarkable. Abdominal aorta is unremarkable for age. Bowel is unremarkable. Appendix is unremarkable. Urinary bladder is unremarkable. PAGE 1 Signed Report (CONTINUED) Name: HERRERA BALDWIN [facility] [place] : 1995 Age/S: 24 / F [id number] Unit #: [id number] Loc: [place] [address] Phys: Evelyn Casey MD Acct: [id number] Dis Date: Status: REG ER PHONE #: [phone] Exam Date: 09/25/2019 2958 FAX #: Reason: abdominal pain EXAMS: CPT: [id number] CT ABD PELVIS W/CONT 23604 <Continued> Uterus is normal in appearance and is retroverted. Bilateral ovarian cysts. No adenopathy, free fluid, or free air. No abnormal mass, edema, or focal fluid collection. Abdominal-pelvic wall is intact. Skeletal structures are normal for patient age. No abnormal enhancing lesion is seen. Impression: 1. No specific evidence of acute pathology. 2. Retroverted uterus. at 1916 Reported and signed by: Kevin Dent M.D. CC: Evelyn Casey MD; Brenda LINDQUIST Technologist:RT Kristine(R)(CT) CTDI: DLP: Trnscb Date/Time: 09/25/2019 (1915) [email or web address] Orig Print D/T: S: 09/25/2019 (1918) PAGE 2 Signed Report BASIC METABOLIC PANEL 2019-09-25 18:34:00 Test Item Value Reference Range Comments SODIUM (test code=NA) 138 mmol/L 134-147 POTASSIUM (test code=K) 3.7 mmol/L 3.4-5.0 CHLORIDE (test code=CL) 105 mmol/L 100-108 CARBON DIOXIDE (test code=CO2) 27 mmol/L 21-32 ANION GAP (test code=GAP) 6.0 GAP calc 4.0-15.0 GLUCOSE (test code=GLU) 124 MG/DL 70-110 BLOOD UREA NITROGEN (test code=BUN) 9 MG/DL 7-18 GLOMERULAR FILTRATION RATE (test code=GFR) >=60 max estimate estGFR >60 CREATININE (test code=CREAT) 1.0 MG/DL 0.6-1.0 CALCIUM (test code=CA) 9.6 MG/DL 8.5-10.1 HEPATIC FUNCTION [id number] 18:34:00 Test Item Value Reference Range Comments TOTAL PROTEIN (test code=PROT) 8.6 G/DL 6.4-8.2 ALBUMIN (test code=ALB) 4.4 G/DL 3.4-5.0 BILIRUBIN TOTAL (test code=BILT) 0.30 MG/DL 0.2-1.2 BILIRUBIN DIRECT (test code=BILD) < 0.10 MG/DL 0.00-0.30 BILIRUBIN INDIRECT (test code=BILIND) 0.20 MG/DL 0.2-1.2 SGOT/AST (test code=AST) 74 Unit/L 15-37 SGPT/ALT (test code=ALT) 118 Unit/L 12-78 ALKALINE PHOSPHATASE TOTAL (test code=ALKP) 91 Unit/L 45-117 [id number] 18:34:00 Test Item Value Reference Range Comments LIPASE (test code=LIP) 110 Unit/L 114-286 UA RFLX MICR CULT IF [id number] 18:32:00 Test Item Value Reference Range Comments UA COLOR (test code=COLU) LIGHT YELLOW discript YEL/STRAW UA APPEARANCE (test code=APPU) CLEAR discript CLEAR UA GLUCOSE DIPSTICK (test code=DGLUU) NEGATIVE mg/dL NEG UA BILIRUBIN DIPSTICK (test code=BILU) NEGATIVE mg/dL NEG UA KETONE DIPSTICK (test code=KETU) NEGATIVE mg/dL NEG UA SPECIFIC GRAVITY (test code=SGU) <=1.005 SG 1.005-1.030 UA BLOOD DIPSTICK (test code=FELIBERTO) 1+ mg/DL NEG UA PH DIPSTICK (test code=VISH) 5.5 pH UNITS 5.0-7.0 UA PROTEIN DIPSTICK (test code=PROU) NEGATIVE mg/dL NEG UA UROBILINIOGEN DIPSTICK (test 0.2 mg/dL <2.0 code=URO) UA NITRITE DIPSTICK (test code=RICARDO) NEGATIVE SCREEN NEG UA LEUKOCYTE ESTERASE DIPSTICK (test NEGATIVE Leuk/mcL NEGATIVE code=LEUU) UA WBC (test code=WBCU) 0-1 #WBC/HPF 0-3 UA RBC (test code=RBCU) 0-1 #RBC/HPF 0-3 UA BACTERIA (test code=BACU) NONE SEEN /HPF NONE-TRACE UA SQUAMOUS CELLS (test code=SQU) 1+ /HPF NONE UA CULTURE NEEDED? (test code=UACULT) NO, WBC<10 Criteria Culture CHK SOURCE OF URINE: CLEAN CATCHIndication for culture: Dysuria/FrequencyUR HCG [id number] 18:32:00 Test Item Value Reference Range Comments UR HCG QUAL (test code=HCGQLU) NEGATIVE NEGATIVE SOURCE OF URINE: CLEAN CATCHIndication for culture: Dysuria/FrequencyCBC W/ AUTO [id number] 18:19:00 Test Item Value Reference Range Comments WHITE BLOOD CELL (test code=WBC) 21.1 K/mm3 3.5-11.0 RED BLOOD CELL (test code=RBC) 5.06 M/mm3 4.70-6.10 HEMOGLOBIN (test code=HGB) 15.2 G/DL 10.4-14.9 HEMATOCRIT (test code=HCT) 45.4 % 31.5-44.1 MEAN CELL VOLUME (test code=MCV) 89.7 Fl 84.5-98.6 MEAN CELL HGB (test code=MCH) 30.0 pg 27.0-34.2 MEAN CELL HGB CONCETRATION (test code=MCHC) 33.5 G/DL 31.5-34.0 RED CELL DISTRIBUTION WIDTH (test code=RDW) 13.1 SD 11.5-14.5 PLATELET COUNT (test code=PLT) 334.0 K/mm3 150-450 MEAN PLATELET VOLUME (test code=MPV) 10.30 fL 7.0-10.5 NEUTROPHIL % (test code=NT%) 90.6 % 40-76 LYMPHOCYTE % (test code=LY%) 5.9 % 20.5-51.1 MONOCYTE % (test code=MO%) 3.2 % 1.7-9.3 EOSINOPHIL % (test code=EO%) 0.3 % 0.0-6.0 BASOPHIL % (test code=BA%) 0.0 % 0.0-2.0 NEUTROPHIL # (test code=NT#) 19.08 K/mm3 1.8-7.6 LYMPHOCYTE # (test code=LY#) 1.2 K/mm3 0.6-3.2 MONOCYTE # (test code=MO#) 0.7 K/mm3 0.3-1.1 EOSINOPHIL # (test code=EO#) 0.1 K/mm3 0.0-0.4 BASOPHIL # (test code=BA#) 0.0 K/mm3 0.0-0.1 MANUAL DIFF REQUIRED (test code=MDIFF) NO DIFF/SCN CRITERIA UA RFLX MICR CULT IF [id number] 18:18:00 Test Item Value Reference Range Comments UA COLOR (test code=COLU) LIGHT YELLOW discript YEL/STRAW UA APPEARANCE (test code=APPU) CLEAR discript CLEAR UA GLUCOSE DIPSTICK (test code=DGLUU) NEGATIVE mg/dL NEG UA BILIRUBIN DIPSTICK (test code=BILU) NEGATIVE mg/dL NEG UA KETONE DIPSTICK (test code=KETU) NEGATIVE mg/dL NEG UA SPECIFIC GRAVITY (test code=SGU) <=1.005 SG 1.005-1.030 UA BLOOD DIPSTICK (test code=FELIBERTO) 1+ mg/DL NEG UA PH DIPSTICK (test code=VISH) 5.5 pH UNITS 5.0-7.0 UA PROTEIN DIPSTICK (test code=PROU) NEGATIVE mg/dL NEG UA UROBILINIOGEN DIPSTICK (test 0.2 mg/dL <2.0 code=URO) UA NITRITE DIPSTICK (test code=RICARDO) NEGATIVE SCREEN NEG UA LEUKOCYTE ESTERASE DIPSTICK (test NEGATIVE Leuk/mcL NEGATIVE code=LEUU) UA CULTURE NEEDED? (test code=UACULT) Criteria Culture CHK SOURCE OF URINE: CLEAN CATCHIndication for culture: Dysuria/Frequency
[2019-09-28 18:23] LABS: Urine Blood NEGATIVE (NEG); Urine Glucose NEGATIVE (NEG); Urine Protein NEGATIVE (NEG); Urine Specific Gravity 1.005 (1.005-1.030); Urine pH 5.5 (5.0-7.0)
[2019-09-28 18:34] LABS: Absolute Lymphocytes (CBC) 1.6 K/uL (0.7-4.9); Basophils % 0.3 % (0-1.3); Hematocrit 43.4 % (36.0-45.0); Lymphocytes % 6.7 % (15.3-44.8); MPV 8.6 fL (7.6-11.3); RBC Red Blood Cell Count 4.97 M/uL (3.86-4.86)
[2019-09-28] MEDS ORDERED: ONDANSETRON 4 MG/2 ML VIAL ONE (18:39)
[2019-09-28 18:56] LABS: ALT/SGPT 82 U/L (12-78); AST/SGOT 32 U/L (15-37); Albumin 4.7 g/dL (3.4-5.0); Alkaline Phosphatase 78 U/L (45-117); BUN Blood Urea Nitrogen 9 mg/dL (7-18); Bicarbonate 27 mmol/L (21-32); Bilirubin Direct 0.1 mg/dL (0-0.2); Bilirubin Total 0.5 mg/dL (0.2-1.0); Glucose Level 103 mg/dL (74-106); Lipase 95 U/L (73-393); Potassium 3.3 mmol/L (3.5-5.1); Protein, Total 8.4 g/dL (6.4-8.2); Sodium Level 138 mmol/L (136-145)
[2019-09-28] MEDS ORDERED: MORPHINE 4 MG/ML SYR ONE (19:16)
[2019-09-28] MEDS ORDERED: FAMOTIDINE 20 MG/2 ML VIAL IV ONE (19:16)
--- NOTE | 2019-09-28 19:29 | RAD REPORT ---
EXAM DESCRIPTION: CTAbdomen Pelvis W Contrast - 09/28/2019 7:22 pm CLINICAL HISTORY: Abdominal pain. ABD PAIN COMPARISON: No comparisons TECHNIQUE: Biphasic CT imaging of the abdomen and pelvis was performed with 100 ml non-ionic IV cont rast. All CT scans are performed using dose optimization technique as appropriate and may include automated exposure control or mA/KV adjustment according to patient size. FINDINGS: The lung bases are clear. Small arterial phase enhancing lesion measuring 10 mm in the right lobe liver has a benign appearance , probably a small hemangioma or FNH. No biliary dilatation. The spleen, pancreas, adrenal glands and kidneys are within normal limits. No bowel obstruction, free air, free fluid or abscess. Small fat containing umbilical hernia. The john endix is normal. No evidence of significant lymphadenopathy. No suspicious bony findings. IMPRESSION: No acute intra-abdominal or pelvic finding.
--- NOTE | 2019-09-28 19:54 | ER ---
Nurse's Notes [facility] Name: Alexa Luna Age: 24 yrs Sex: Female : 1995 Arrival Date: 09/28/2019 Time: 17:47 Bed 18 Private MD: Diagnosis: Vomiting Presentation: 09/28 17:52 Presenting complaint: Patient states: i went to the ER 2 or 3 nights ago for my tw2 stomach, its doing it again, with the projectile throwing up, i have diverticulitis, and it hurts really bad i cant take it. Transition of care: patient was not received from another setting of care. Onset of symptoms was September 28, 2019. Risk Assessment: Do you want to hurt yourself or someone else? Patient reports no desire to harm self or others. Initial Sepsis Screen: Does the patient meet any 2 criteria? No. Patient's initial sepsis screen is negative. Does the patient have a suspected source of infection? No. Patient's initial sepsis screen is negative. Care prior to arrival: None. 17:52 Method Of Arrival: Ambulatory tw2 17:52 Acuity: MANJEET 3 tw2 Triage Assessment: 17:54 General: Appears uncomfortable, Behavior is crying. Pain: Complains of pain in abdomen. tw2 GI: Reports lower abdominal pain, upper abdominal pain, nausea, vomiting. ACID CHANGER: 17:54 LMP 09/24/2019 tw2 Historical: - Allergies: 17:54 Seroquel; tw2 - Home Meds: 17:54 metronidazole 500 mg Oral tab 1 tab every 12 hours [Active]; tw2 - PMHx: 17:54 Anxiety; Diverticulitis; tw2 - PSHx: 17:54 I\T\D for staph; tw2 - Immunization history:: Adult Immunizations. - Coronavirus screen:: The patient has NOT traveled to [place] in the past 14 days. - Social history:: Smoking status: Patient reports the use of cigarette tobacco products, smokes one-half pack cigarettes per day. - Ebola Screening: : Patient denies travel to an Ebola-affected area in the 21 days before illness onset. Screenin:14 Abuse screen: Denies threats or abuse. Denies injuries from another. Nutritional ca1 screening: No deficits noted. Tuberculosis screening: No symptoms or risk factors identified. Fall Risk IV access (20 points). Assessment: 18:14 General: Appears in no apparent distress. uncomfortable, Behavior is calm, cooperative, ca1 appropriate for age. Pain: Complains of pain in abdomen Pain currently is 9 out of 10 on a pain scale. Pain began 2-3 days ago. Is intermittent. Neuro: Level of Consciousness is awake, alert, obeys commands, Oriented to person, place, time, situation, Appropriate for age. Cardiovascular: Heart tones S1 S2 present Capillary refill < 3 seconds Patient's skin is warm and dry. Respiratory: Airway is patent Respiratory effort is even, unlabored, Respiratory pattern is regular, symmetrical, Breath sounds are clear bilaterally. GI: Abdomen is round non-distended, Bowel sounds present X 4 quads. Abd is soft and non tender X 4 quads. Reports nausea, vomiting. : No deficits noted. No signs and/or symptoms were reported regarding the genitourinary system. EENT: No deficits noted. No signs and/or symptoms were reported regarding the EENT system. Derm: Skin is intact, is healthy with good turgor, Skin is pink, warm \T\ dry. Musculoskeletal: Circulation, motion, and sensation intact. Capillary refill < 3 seconds. 19:15 Reassessment: Patient appears in no apparent distress at this time. Patient and/or family updated on plan of care and expected duration. Pain level reassessed. Patient is alert, oriented x 3, equal unlabored respirations, skin warm/dry/pink. Critical lab alert of WBC at 23 notified Jennifer Jane LOBBYIST. 20:25 Reassessment: Patient appears in no apparent distress at this time. No changes from previously documented assessment. Patient and/or family updated on plan of care and expected duration. Pain level reassessed. Patient is alert, oriented x 3, equal unlabored respirations, skin warm/dry/pink. Patient states feeling better. Patient states symptoms have improved. Vital Signs: 17:54 BP 150 / 103; Pulse 99; Resp 17; Temp 97.6(TE); Pulse Ox 98% on R/A; Weight 63.5 kg tw2 (R); Height 5 ft. 4 in. (162.56 cm); Pain 4/10; 19:37 BP 109 / 53; Pulse 81; Resp 16; Pulse Ox 99% on R/A; wh 20:25 BP 111 / 60; Pulse 72; Resp 18; Pulse Ox 100% ; wh 17:54 Body Mass Index 24.03 (63.50 kg, 162.56 cm) tw2 ED Course: 17:47 Patient arrived in ED. rg4 17:53 Triage completed. tw2 17:53 Arm band placed on. tw2 18:03 Maddie Loaiza, RN is Primary Nurse. ca1 18:09 Carlo Rios MD is Attending Physician. kdr 18:14 Patient has correct armband on for positive identification. Placed in gown. Bed in low ca1 position. Call light in reach. Side rails up X 1. Pulse ox on. NIBP on. Warm blanket given. 18:20 Initial lab(s) drawn, by me, sent to lab. Inserted saline lock: 20 gauge in right dh3 antecubital area, using aseptic technique. Blood collected. 19:11 Jennifer Jane [facility]C [facility]. snw 19:23 CT Abd/Pelvis - IV Contrast Only In Process Unspecified. EDMS 20:25 No provider procedures requiring assistance completed. IV discontinued, intact, wh bleeding controlled, No redness/swelling at site. Administered Medications: 18:43 Drug: Zofran 4 mg Route: IVP; Site: right antecubital; ca1 19:36 Follow up: Response: No adverse reaction; Nausea is decreased wh 19:14 Drug: morphine 4 mg Route: IVP; Site: right antecubital; 19:36 Follow up: Response: No adverse reaction; Pain is decreased; RASS: Alert and Calm (0) 19:16 Drug: Pepcid 20 mg Route: IVP; Site: right antecubital; 19:36 Follow up: Response: No adverse reaction 20:05 Drug: Phenergan 25 mg Route: PO; 20:24 Follow up: Response: No adverse reaction Outcome: 19:53 Discharge ordered by . snw 20:26 Discharged to home ambulatory, with family. wh 20:26 Condition: stable 20:26 Discharge instructions given to patient, family, Instructed on discharge instructions, follow up and referral plans. medication usage, POC Demonstrated understanding of instructions, follow-up care, medications, POC Prescriptions given X 2. 20:26 Patient left the ED. wh Signatures: Dispatcher [employer] EDMS Carlo Rios MD MD [facility] Jennifer Jane, FURNACE TENDER-C FURNACE TENDER-Csnw Magdalena Diana, RN RN tw2 Viri Glasgow 4 Dinorah Han [facility] Andre Vora Maddie Loaiza RN RN ca1 Corrections: (The following items were deleted from the chart) 20:25 19:15 Reassessment: Patient appears in no apparent distress at this time. Patient wh and/or family updated on plan of care and expected duration. Pain level reassessed. Patient is alert, oriented x 3, equal unlabored respirations, skin warm/dry/pink.
--- NOTE | 2019-09-28 19:54 | EDPHYS ---
Physician Documentation [facility] Name: Alexa Luna Age: 24 yrs Sex: Female : 1995 Arrival Date: 09/28/2019 Time: 17:47 Bed 18 Private MD: ED Physician Carlo Rios HPI: 09/28 18:54 This 24 yrs old Female presents to ER via Ambulatory with complaints of kdr Abdominal Pain, Vomiting. 18:54 The patient presents to the emergency department with nausea, that is mild, vomiting, kdr that is intermittent. Onset: The symptoms/episode began/occurred gradually, 3 day(s) ago. Possible causes: States that she has a history of diverticulitis. The symptoms are aggravated by food , The symptoms are alleviated by nothing. Associated signs and symptoms: Pertinent positives: abdominal pain, nausea, vomiting. Severity of symptoms: At their worst the symptoms were moderate incapacitating in the emergency department the symptoms are unchanged. The patient has experienced similar episodes in the past, a few times. The patient has been recently seen by a physician: The patient has been recently seen at the [facility], a couple of weeks ago, for unrelated complaints. 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 - Coronavirus screen:: The patient has NOT traveled to [place] in the past 14 days. - Social history:: Smoking status: Patient reports the use of cigarette tobacco products, smokes one-half pack cigarettes per day. - Ebola Screening: : Patient denies travel to an Ebola-affected area in the 21 days before illness onset. ROS: 18:54 Constitutional: Negative for fever, chills, and weight loss, Eyes: Negative for injury, kdr pain, redness, and discharge, Neck: Negative for injury, pain, and swelling, Cardiovascular: Negative for chest pain, palpitations, and edema, Respiratory: Negative for shortness of breath, cough, wheezing, and pleuritic chest pain, Back: Negative for injury and pain, : Negative for injury, bleeding, discharge, and swelling, MS/Extremity: Negative for injury and deformity, Skin: Negative for injury, rash, and discoloration, Neuro: Negative for headache, weakness, numbness, tingling, and seizure activity. Psych: Negative for depression, anxiety, suicide ideation, homicidal ideation, and hallucinations, Allergy/Immunology: Negative for hives, rash, and allergies, Endocrine: Negative for neck swelling, polydipsia, polyuria, polyphagia, and marked weight changes, Hematologic/Lymphatic: Negative for swollen nodes, abnormal bleeding, and unusual bruising. 18:54 Abdomen/GI: Positive for abdominal pain, nausea and vomiting, abdominal cramps, Negative for diarrhea, constipation, abdominal distension, black/tarry stool, rectal pain, rectal bleeding, bowel incontinence. Exam: 18:54 Constitutional: This is a well developed, well nourished patient who is awake, alert, kdr and in no acute distress. Head/Face: Normocephalic, atraumatic. Eyes: Pupils equal round and reactive to light, extra-ocular motions intact. Lids and lashes normal. Conjunctiva and sclera are non-icteric and not injected. Cornea within normal limits. Periorbital areas with no swelling, redness, or edema. Neck: Trachea midline, no thyromegaly or masses palpated, and no cervical lymphadenopathy. Supple, full range of motion without nuchal rigidity, or vertebral point tenderness. No Meningismus. Chest/axilla: Normal chest wall appearance and motion. Nontender with no deformity. No lesions are appreciated. Cardiovascular: Regular rate and rhythm with a normal S1 and S2. No gallops, murmurs, or rubs. Normal PMI, no JVD. No pulse deficits. Respiratory: Lungs have equal breath sounds bilaterally, clear to auscultation and percussion. No rales, rhonchi or wheezes noted. No increased work of breathing, no retractions or nasal flaring. Back: No spinal tenderness. No costovertebral tenderness. Full range of motion. Skin: Warm, dry with normal turgor. Normal color with no rashes, no lesions, and no evidence of cellulitis. MS/ Extremity: Pulses equal, no cyanosis. Neurovascular intact. Full, normal range of motion. Neuro: Awake and alert, GCS 15, oriented to person, place, time, and situation. Cranial nerves II-XII grossly intact. Motor strength 5/5 in all extremities. Sensory grossly intact. Cerebellar exam normal. Normal gait. Psych: Awake, alert, with orientation to person, place and time. Behavior, mood, and affect are within normal limits. 18:54 Abdomen/GI: Inspection: abdomen appears normal, Bowel sounds: active, diminished, in all quadrants, Palpation: soft, mild abdominal tenderness, in the right lower quadrant and left lower quadrant. Vital Signs: 17:54 BP 150 / 103; Pulse 99; Resp 17; Temp 97.6(TE); Pulse Ox 98% on R/A; Weight 63.5 kg tw2 (R); Height 5 ft. 4 in. (162.56 cm); Pain 4/10; 19:37 BP 109 / 53; Pulse 81; Resp 16; Pulse Ox 99% on R/A; wh 20:25 BP 111 / 60; Pulse 72; Resp 18; Pulse Ox 100% ; wh 17:54 Body Mass Index 24.03 (63.50 kg, 162.56 cm) tw2 MDM: 19:14 Patient medically screened. snw 19:56 Data reviewed: vital signs, nurses notes. Data interpreted: Pulse oximetry: on room air snw is 99 %. Interpretation: normal. Counseling: I had a detailed discussion with the patient and/or guardian regarding: the historical points, exam findings, and any diagnostic results supporting the discharge/admit diagnosis, lab results, radiology results, the need for outpatient follow up, to return to the emergency department if symptoms worsen or persist or if there are any questions or concerns that arise at home. Special discussion: Based on the patient's Hx, exam, and Dx evaluation, there is no indication for emergent surgery or inpatient Tx. It is understood by the patient/guardian that if the Sx's persist or worsen they need to return immediately for re-evaluation. Based on the history and exam findings, there is no indication for further emergent testing or inpatient evaluation. I discussed with the patient/guardian the need to see the primary care provider for further evaluation of the symptoms. 20:08 ED course: possible adverse rxn to Flagyl, disulfiram like rxn. Stop Flagyl immediately.snw 09/28 18:13 Order name: Basic Metabolic Panel; Complete Time: 19:13 ca1 09/28 18:13 Order name: CBC with Diff ca1 09/28 18:13 Order name: Creatinine for Radiology; Complete Time: 19:13 ca1 09/28 18:13 Order name: Hepatic Function; Complete Time: 19:13 ca1 09/28 18:13 Order name: Lipase; Complete Time: 19:13 ca1 09/28 18:15 Order name: Urine Dipstick--Ancillary (enter results) [facility] 09/28 18:15 Order name: Urine --Ancillary (enter results) [facility] 09/28 18:25 Order name: Urine --Ancillary; Complete Time: 19:13 EDMS 09/28 18:25 Order name: Urine Dipstick-Ancillary; Complete Time: 19:13 EDDE 09/28 18:53 Order name: CT Abd/Pelvis - IV Contrast Only; Complete Time: 19:50 kdr 09/28 18:13 Order name: IV Saline Lock; Complete Time: 18:25 ca1 09/28 18:13 Order name: Labs collected and sent; Complete Time: 18:25 ca1 09/28 18:13 Order name: Urine Test (obtain specimen); Complete Time: 18:14 ca1 09/28 18:13 Order name: Urine Dipstick-Ancillary (obtain specimen); Complete Time: 18:14 ca1 Administered Medications: 18:43 Drug: Zofran 4 mg Route: IVP; Site: right antecubital; ca1 19:36 Follow up: Response: No adverse reaction; Nausea is decreased wh 19:14 Drug: morphine 4 mg Route: IVP; Site: right antecubital; wh 19:36 Follow up: Response: No adverse reaction; Pain is decreased; RASS: Alert and Calm (0) wh 19:16 Drug: Pepcid 20 mg Route: IVP; Site: right antecubital; wh 19:36 Follow up: Response: No adverse reaction 20:05 Drug: Phenergan 25 mg Route: PO; wh 20:24 Follow up: Response: No adverse reaction Disposition: 09/29 07:07 Co-signature as Attending Physician, Carlo Rios MD I agree with the assessment and kdr plan of care. Disposition: 09/28/19 19:53 Discharged to Home. Impression: Vomiting. - Condition is Stable. - Discharge Instructions: Nausea and Vomiting, Adult. - Prescriptions for Cipro 500 mg Oral Tablet - take 1 tablet by ORAL route every 12 hours for 10 days; 20 tablet. promethazine 25 mg Oral Tablet - take 1 tablet by ORAL route every 6 hours As needed; 20 tablet. - Medication Reconciliation Form, Thank You Letter, Antibiotic Education, Prescription Opioid Use form. - Follow up: Private Physician; When: 2 - 3 days; Reason: Recheck today's complaints, Continuance of care, Re-evaluation by your physician. Follow up: Emergency Department; When: As needed; Reason: Worsening of condition. - Notes: Please stop Flagyl. Signatures: Dispatcher [employer] EDMS Carlo Rios MD MD kdr Therrien, Shelly, METAL FORGER'S ASSISTANT-C METAL FORGER'S ASSISTANT-Juanw Magdalena Diana, ISABEL RN tw2 Andre Vora Josse, Maddie RN RN ca1 Corrections: (The following items were deleted from the chart) 09/28 20:26 19:53 09/28/2019 19:53 Discharged to Home. Impression: Vomiting. Condition is Stable. wh Forms are Medication Reconciliation Form, Thank You Letter, Antibiotic Education, Prescription Opioid Use. Follow up: Private Physician; When: 2 - 3 days; Reason: Recheck today's complaints, Continuance of care, Re-evaluation by your physician. Follow up: Emergency Department; When: As needed; Reason: Worsening of condition. snw
[2019-09-28] MEDS ORDERED: PROMETHAZINE 25 MG TABLET ONE (20:06)
[2019-09-28 21:29] VITALS: TEMP 97.6
[2019-09-28 21:32] VITALS: BP 111/60; O2SAT 100
[2019-09-28 21:35] LABS: Blood Morphology Comment NOT SEEN (NOT SEEN); Platelet Estimate ADEQ; Urine White Blood Cell Casts OK
== END 2019-09-28 20:26 | disposition home or self-care (01) ==
LOC: ER 17:45
DX: R11.10 Vomiting, unspecified (principal); F41.9 Anxiety disorder, unspecified
CPT/HCPCS: 85025; 80048; 36415; 81025; 80076; 81003; 83690; 74177; 96375; 96374; 99284; Q9967; J2405; Q0169

== ENCOUNTER 2019-10-11 08:20 | Emergency (ER) | payer BC ==
--- OUTSIDE RECORDS SUMMARY | 2019-10-11 08:22 | XMS REPORT ---
:1995 Author Organization [facility] Address [address] [place] [address] Care Team Providers Name Role Phone Unavailable [...] Department ID 2019-06-08 2019-06-08 Emergency E BL [facility] [id number] 20:13:00 20:13:00 Results Test Description Test Time Test Comments Text Results Atomic Results Result Comments - CT ABD PELVIS W/CONT 2019-09-25 19:16:00 Name: HERRERA BALDWIN [facility] : 1995 Age/S: 24 / F [id number] Unit #: [id number] Loc: [place] [address] Phys: Evelyn Casey MD Acct: [id number] Dis Date: Status: REG ER PHONE #: [phone] Exam Date: 09/25/2019 185 FAX #: Reason: abdominal pain EXAMS: CPT: [id number] CT ABD PELVIS W/CONT 28564 Location code: B2 CT Abdomen and Pelvis [...] 1 Signed Report (CONTINUED) Name: HERRERA BALDWIN [facility] [place] : 1995 Age/S: 24 / F [id number] Unit #: [id number] Loc: [place] [address] Phys: Evelyn Casey MD Acct: [id number] Dis Date: Status: REG ER PHONE #: [phone] Exam Date: 09/25/2019 0536 FAX #: Reason: abdominal pain EXAMS: CPT: [id number] CT ABD PELVIS W/CONT 65569 <Continued> Uterus is normal in appearance and [...] (test code=CA) 9.6 MG/DL 8.5-10.1 HEPATIC FUNCTION [id number] 18:34:00 Test Item Value Reference Range Comments TOTAL PROTEIN (test code=PROT) 8.6 G/DL 6.4-8.2 ALBUMIN (test code=ALB) 4.4 G/DL 3.4-5.0 BILIRUBIN TOTAL (test code=BILT) 0.30 MG/DL 0.2-1.2 BILIRUBIN DIRECT (test code=BILD) < 0.10 MG/DL 0.00-0.30 BILIRUBIN INDIRECT (test code=BILIND) 0.20 MG/DL 0.2-1.2 SGOT/AST (test code=AST) 74 Unit/L 15-37 SGPT/ALT (test code=ALT) 118 Unit/L 12-78 ALKALINE PHOSPHATASE TOTAL (test code=ALKP) 91 Unit/L 45-117 [id number] 18:34:00 Test Item Value Reference Range Comments LIPASE (test code=LIP) 110 Unit/L 114-286 UA RFLX MICR CULT IF [id number] 18:32:00 Test Item Value Reference Range Comments [...] URINE: CLEAN CATCHIndication for culture: Dysuria/FrequencyUR HCG [id number] 18:32:00 Test Item Value Reference Range Comments UR HCG QUAL (test code=HCGQLU) NEGATIVE NEGATIVE SOURCE OF URINE: CLEAN CATCHIndication for culture: Dysuria/FrequencyCBC W/ AUTO [id number] 18:19:00 Test Item Value Reference Range Comments [...] DIFF/SCN CRITERIA UA RFLX MICR CULT IF [id number] 18:18:00 Test Item Value Reference Range Comments [...]
[2019-10-11 09:05] LABS: Urine Blood NEGATIVE (NEG); Urine Glucose NEGATIVE (NEG); Urine Protein NEGATIVE (NEG); Urine Specific Gravity 1.015 (1.005-1.030); Urine pH 5.5 (5.0-7.0)
[2019-10-11] MEDS ORDERED: LIDOCAINE 1% MPF 2 ML AMPULE ONE (09:07)
[2019-10-11] MEDS ORDERED: IBUPROFEN 100 MG/5 ML UCUP ONE (09:08)
[2019-10-11] MEDS ORDERED: dexAMETHasone 4 MG/ML VIAL ONE (09:08)
[2019-10-11] MEDS ORDERED: PROMETHAZINE 25 MG TABLET ONE (09:08)
[2019-10-11] MEDS ORDERED: ALBUTEROL 2.5 MG/3 ML NEB SOL ONE (09:08)
[2019-10-11] MEDS ORDERED: CEFTRIAXONE 1000 MG/VIAL ONE (09:08)
[2019-10-11 09:58] LABS: Urine Bacteria <20 /HPF (<20); Urine Culture Reflex Order NOT NEEDED; Urine RBC <5 /HPF (NONE SEEN)
--- NOTE | 2019-10-11 10:05 | RAD REPORT ---
EXAM DESCRIPTION: RAD - Chest Pa And Lat (2 Views) - 10/11/2019 9:08 am CLINICAL HISTORY: COUGH Chest pain. COMPARISON: Abdomen Pelvis W Contrast dated 09/28/2019 FINDINGS: The lungs are clear. The heart is normal in size. No displaced fractures. IMPRESSION: No acute or concerning finding suspected.
--- NOTE | 2019-10-11 10:56 | EDPHYS ---
Physician Documentation [facility] Name: Alexa Luna Age: 24 yrs Sex: Female : 1995 Arrival Date: 10/11/2019 Time: 08:26 Bed 17 Private MD: ED Physician Carlo Rios HPI: 10/10 13:48 This 24 yrs old Female presents to ER via Ambulatory with complaints of Flu snw Symptoms. 13:48 Onset: The symptoms/episode began/occurred 5 day(s) ago, and became persistent. snw Associated signs and symptoms: Pertinent positives: cough, earache, fever, sore throat, wheezing. Modifying factors: The patient symptoms are alleviated by nothing. It is unknown whether or not the patient has had similar symptoms in the past. The patient has not recently seen a physician. 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 - Social history:: Smoking status: Patient reports the use of cigarette tobacco products, smokes one-half pack cigarettes per day. ROS: 08:53 Constitutional: Positive for body aches, chills, fatigue, fever, malaise. snw 13:49 Eyes: Negative for injury, pain, redness, and discharge, ENT: Negative for injury, snw pain, and discharge, Neck: Negative for injury, pain, and swelling, Cardiovascular: Negative for chest pain, palpitations, and edema. 13:49 Abdomen/GI: Negative for abdominal pain, nausea, vomiting, diarrhea, and constipation, Back: Negative for injury and pain, : Negative for injury, bleeding, discharge, and swelling, MS/Extremity: Negative for injury and deformity, Skin: Negative for injury, rash, and discoloration, Neuro: Negative for headache, weakness, numbness, tingling, and seizure, Psych: Negative for depression, anxiety, suicide ideation, homicidal ideation, and hallucinations. 13:49 Respiratory: Positive for cough, shortness of breath, wheezing. Exam: 08:50 Head/Face: Normocephalic, atraumatic. Eyes: Pupils equal round and reactive to light, snw extra-ocular motions intact. Lids and lashes normal. Conjunctiva and sclera are non-icteric and not injected. Cornea within normal limits. Periorbital areas with no swelling, redness, or edema. 08:50 Neck: Trachea midline, no thyromegaly or masses palpated, and no cervical lymphadenopathy. Supple, full range of motion without nuchal rigidity, or vertebral point tenderness. No Meningismus. Chest/axilla: Normal chest wall appearance and motion. Nontender with no deformity. No lesions are appreciated. 08:50 Abdomen/GI: Soft, non-tender, with normal bowel sounds. No distension or tympany. No guarding or rebound. No evidence of tenderness throughout. Back: No spinal tenderness. No costovertebral tenderness. Full range of motion. Skin: Warm, dry with normal turgor. Normal color with no rashes, no lesions, and no evidence of cellulitis. MS/ Extremity: Pulses equal, no cyanosis. Neurovascular intact. Full, normal range of motion. Neuro: Awake and alert, GCS 15, oriented to person, place, time, and situation. Cranial nerves II-XII grossly intact. Motor strength 5/5 in all extremities. Sensory grossly intact. Cerebellar exam normal. Normal gait. Psych: Awake, alert, with orientation to person, place and time. Behavior, mood, and affect are within normal limits. 08:50 Constitutional: The patient appears alert, awake, restless, uncomfortable. 08:50 ENT: TM's: dullness, bilaterally, fluid levels, Nose: is normal, Mouth: is normal, Posterior pharynx: is normal, Voice: is hoarse. 08:50 Cardiovascular: Rate: tachycardic, Rhythm: regular. 08:50 Respiratory: the patient does not display signs of respiratory distress, Respirations: shallow respirations, tachypnea, Breath sounds: wheezing: that is moderate, that is severe, is heard diffusely, bronchitic cough. Vital Signs: 08:51 BP 141 / 92; Pulse 107; Resp 19 S; Temp 98(O); Pulse Ox 100% on R/A; Weight 65.77 kg jl7 (R); Height 5 ft. 4 in. (162.56 cm) (R); Pain 0/10; 10:25 BP 105 / 74; Pulse 81; Resp 19 S; Pulse Ox 95% on R/A; 08:51 Body Mass Index 24.89 (65.77 kg, 162.56 cm) MDM: 08:39 Patient medically screened. snw 13:47 Data reviewed: vital signs, nurses notes. Data interpreted: Pulse oximetry: on room air snw is 95 %. Interpretation: acceptable. Counseling: I had a detailed discussion with the patient and/or guardian regarding: the historical points, exam findings, and any diagnostic results supporting the discharge/admit diagnosis, lab results, radiology results, the need for outpatient follow up, to return to the emergency department if symptoms worsen or persist or if there are any questions or concerns that arise at home. Special discussion: Based on the history and exam findings, there is no indication for further emergent testing or inpatient evaluation. I discussed with the patient/guardian the need to see the primary care provider for further evaluation of the symptoms. 10/10 08:31 Order name: Flu; Complete Time: 09:21 snw 10/10 08:31 Order name: Strep; Complete Time: 09:21 snw 10/10 08:31 Order name: Urine Culture snw 10/10 08:31 Order name: Urine Microscopic Only; Complete Time: 10:01 snw 10/10 09:01 Order name: Urine Dipstick--Ancillary (enter results); Complete Time: 09:16 bd 10/10 09:01 Order name: Urine --Ancillary (enter results); Complete Time: 09:16 bd 10/10 08:31 Order name: Urine Test (obtain specimen); Complete Time: 10:11 snw 10/10 08:48 Order name: Chest Pa And Lat (2 Views) XRAY; Complete Time: 10:53 snw 10/10 09:21 Order name: Throat Culture EDMS 10/10 08:31 Order name: Urine Dipstick-Ancillary (obtain specimen); Complete Time: 10:11 snw Administered Medications: 09:00 Drug: Decadron - Dexamethasone 10 mg {Note: as ordered.} Route: IVP; Site: Other; 10:00 Follow up: Response: No adverse reaction 09:00 Drug: Motrin Suspension 2 tsp Route: PO; jl7 10:00 Follow up: Response: No adverse reaction 7 09:00 Drug: Phenergan 25 mg Route: PO; jl7 10:00 Follow up: Response: No adverse reaction 7 09:23 Drug: Albuterol 2.5 mg Route: Inhalation; jl7 10:00 Follow up: Response: No adverse reaction 7 10:23 Drug: Rocephin (cefTRIAXone) 1 grams Route: IM; Site: right ventrogluteal; jl7 Disposition: 16:20 Co-signature as Attending Physician, Carlo Rios MD I agree with the assessment and kdr plan of care. Disposition: 10/11/19 10:55 Discharged to Home. Impression: Acute bronchitis, Otitis media, unspecified, bilateral. - Condition is Stable. - Discharge Instructions: Acute Bronchitis, Adult, Otitis Media, Adult, Fever, Adult, Cough, Adult, Rehydration, Adult. - Prescriptions for Albuterol Sulfate 90 mcg/actuation - inhale 1-2 puff by INHALATION route every 4-6 hours; 1 Inhaler. promethazine 25 mg Oral Tablet - take 1 tablet by ORAL route every 6 hours As needed; 20 tablet. Zithromax 500 mg Oral Tablet - take 1 tablet by ORAL route once daily for 5 days; 5 tablet. - Work release form, Medication Reconciliation Form, Thank You Letter, Antibiotic Education, Prescription Opioid Use form. - Follow up: Emergency Department; When: As needed; Reason: Worsening of condition. Follow up: Private Physician; When: 2 - 3 days; Reason: Recheck today's complaints, Continuance of care, Re-evaluation by your physician. Signatures: Dispatcher [employer] [facility] Carlo Rios MD MD kdr Therrien, Shelly, FRINGE MAKER-C FRINGE MAKER-Csnw Alejandra Santana RN RN jl7 Corrections: (The following items were deleted from the chart) 11:29 10:55 10/11/2019 10:55 Discharged to Home. Impression: Acute bronchitis; Otitis media, jl7 unspecified, bilateral. Condition is Stable. Forms are Medication Reconciliation Form, Thank You Letter, Antibiotic Education, Prescription Opioid Use. Follow up: Emergency Department; When: As needed; Reason: Worsening of condition. Follow up: Private Physician; When: 2 - 3 days; Reason: Recheck today's complaints, Continuance of care, Re-evaluation by your physician. snw
--- NOTE | 2019-10-11 10:56 | ER ---
Nurse's Notes [facility] Name: Alexa Luna Age: 24 yrs Sex: Female : 1995 Arrival Date: 10/11/2019 Time: 08:26 Bed 17 Private MD: Diagnosis: Acute bronchitis;Otitis media, unspecified, bilateral Presentation: 10/10 08:51 Chief complaint: Patient states: Cough, congestion, nausea from coughing x 5 days. jl7 Denies fever. Coronavirus screen: The patient has NOT traveled to a country currently being monitored by the [facility] within the last 14 days. Proceed with normal triage procedures. Ebola Screen: No symptoms or risks identified at this time. Initial Sepsis Screen: Does the patient meet any 2 criteria? HR > 90 bpm. No. Patient's initial sepsis screen is negative. Does the patient have a suspected source of infection? Yes: Productive cough/pneumonia. Risk Assessment: Do you want to hurt yourself or someone else? Patient reports no desire to harm self or others. Onset of symptoms was October 05, 2019. Care prior to arrival: None. 08:51 Method Of Arrival: Ambulatory [facility] 08:51 Acuity: MANJEET 4 jl7 Triage Assessment: 08:54 General: Appears in no apparent distress. uncomfortable, ill, Behavior is calm, jl7 cooperative, appropriate for age. Pain: Denies pain. Neuro: Level of Consciousness is awake, alert, obeys commands, Oriented to person, place, time, situation. Cardiovascular: Heart tones S1 S2 present Patient's skin is warm and dry. Respiratory: Airway is patent Respiratory effort is even, unlabored, Respiratory pattern is regular, symmetrical, Breath sounds with rhonchi in right posterior upper lobe, right posterior middle lobe and right posterior lower lobe. GI: Reports nausea. Derm: Skin is pink, warm \T\ dry. MEDICAL SCIENCE LIAISON: 08:54 LMP 09/18/2019 Historical: - Allergies: 08:54 Seroquel; - Home Meds: 08:54 None [Active]; - PMHx: 08:54 Anxiety; Diverticulitis; - PSHx: 08:54 I\T\D for staph; - Immunization history:: Adult Immunizations not up to date. - Social history:: Smoking status: Patient reports the use of cigarette tobacco products, smokes one-half pack cigarettes per day. Screenin:45 Abuse screen: Denies threats or abuse. Denies injuries from another. Nutritional jl7 screening: No deficits noted. Tuberculosis screening: No symptoms or risk factors identified. Fall Risk None identified. Assessment: 08:45 General: See triage assessment. jl7 09:45 Reassessment: Patient appears in no apparent distress at this time. No changes from [facility] previously documented assessment. Patient and/or family updated on plan of care and expected duration. Pain level reassessed. Patient is alert, oriented x 3, equal unlabored respirations, skin warm/dry/pink. Vital Signs: 08:51 BP 141 / 92; Pulse 107; Resp 19 S; Temp 98(O); Pulse Ox 100% on R/A; Weight 65.77 kg jl7 (R); Height 5 ft. 4 in. (162.56 cm) (R); Pain 0/10; 10:25 BP 105 / 74; Pulse 81; Resp 19 S; Pulse Ox 95% on R/A; jl7 08:51 Body Mass Index 24.89 (65.77 kg, 162.56 cm) 7 ED Course: 08:26 Patient arrived in ED. mr 08:27 [facility] snw 08:27 Carlo Rios MD is Attending Physician. snw 08:34 Alejandra Santana RN is Primary Nurse. jl7 08:45 Patient has correct armband on for positive identification. Bed in low position. Call [facility] light in reach. Side rails up X 1. Pulse ox on. NIBP on. 08:45 Flu and/or RSV swab sent to lab. Strep swab sent to lab. jl7 08:54 Triage completed. jl7 08:54 Arm band placed on right wrist. jl7 09:12 Chest Pa And Lat (2 Views) XRAY In Process Unspecified. EDMS 11:28 No provider procedures requiring assistance completed. Patient did not have IV access jl during this emergency room visit. Administered Medications: 09:00 Drug: Decadron - Dexamethasone 10 mg {Note: as ordered.} Route: IVP; Site: Other; jl7 10:00 Follow up: Response: No adverse reaction jl7 09:00 Drug: Motrin Suspension 2 tsp Route: PO; 10:00 Follow up: Response: No adverse reaction 7 09:00 Drug: Phenergan 25 mg Route: PO; 10:00 Follow up: Response: No adverse reaction 09:23 Drug: Albuterol 2.5 mg Route: Inhalation; 10:00 Follow up: Response: No adverse reaction 7 10:23 Drug: Rocephin (cefTRIAXone) 1 grams Route: IM; Site: right ventrogluteal; jl Outcome: 10:55 Discharge ordered by MD. ferguson 11:28 Discharged to home ambulatory. 11:28 Condition: stable 11:28 Discharge instructions given to patient, Instructed on discharge instructions, follow up and referral plans. medication usage, Demonstrated understanding of instructions, follow-up care, medications, Prescriptions given X 3. 11:29 Patient left the ED. jl7 Signatures: Dispatcher [employer] EDMS Jennifer Jane, PRISCILA TYPEWRITER ASSEMBLER-Beba Mahan Jahala, ISABEL RN jl7
[2019-10-11 11:37] VITALS: TEMP 98
[2019-10-11 11:39] VITALS: BP 105/74; O2SAT 95
== END 2019-10-11 11:29 | disposition home or self-care (01) ==
LOC: ER 08:20
DX: J20.9 Acute bronchitis, unspecified (principal); H66.93 Otitis media, unspecified, bilateral; Z88.8 Allergy status to other drugs, medicaments and biological substances; F17.210 Nicotine dependence, cigarettes, uncomplicated
CPT/HCPCS: 87070; 87088; 87086; 81025; 87081; 87804 ×2; 71046; 96372; 96374; 99284; J2001; 81003; 81015; Q0169

== ENCOUNTER 2019-12-12 01:50 | Emergency (ER) | payer BC ==
--- OUTSIDE RECORDS SUMMARY | 2019-12-12 01:53 | XMS REPORT ---
:1995 Author Organization [facility] t Address [address] [place] [address] Care Team Providers Name Role Phone Unavailable Unavailable Unavailable Payers Payer Name Policy Type Policy Number Effective Date Expiration D ate Problems This patient has no known problems. Allergies, Adverse Reactions, Alerts Allergy Name Allergy Status Severity Reaction(s) Onset Inactive Treat ing Comments Type Date Date Clinician quetiapine DA Active MO 2019-09 00:00:0 0 Medications This patient has no known medications. Encounters Start End Encounter Admission Attending Care Care Encounter Date/Time Date/Time Type Type Clinicians Facility Department ID 2019-06-08 2019-06-08 Emergency E BL BL [id number] 20:13:00 20:13:00 Results Test Description Test Time Test Comments Text Results Atomic Results Result Comments - CT ABD PELVIS W/CONT 2019-09-25 19:16:00 Name: HERRERA CHACKO [facility]ly [facility] : 1995 Age/S: 24 / F [id number] Unit #: [id number] Loc: [place] [address] Phys: Evelyn Casey Acct: [id number] Dis Date : Status: REG ER PHONE #: Exam Date: 09/25/2019 1858 FAX #: Reason: abdominal pain EXAMS: CPT: [id number] CT ABD PELVIS W/CONT 86895 Location code : B2 CT Abdomen and Pelvi s with Contrast Indic ation: abdominal pain. Comparison: None. Technical factors: Axial ariel ges were obtained with contrast. Gilberto nal and sagittal reconstruction. This exam was performed according to our departmental dose-optimization program, [facility] includes automated exposure control, adjustment of the mA and /or kV according to patient size an d/or use of iterative reconstru ction technique. Con trast: 100 mL Isovue-300 IV. Creatinin e 1.0. GFR greater than 60. Findings: Lung bases are clear with no pleural effusi on. The liver is normal i n appearance. The biliary duct s are not dilated. No focal lesi on is seen. The gall bladder is normal in appearance. The spleen is unremarkable. The adrenal glands are unremarkable. The pancreas is unremarkable. Kidneys are normal in appea amy. No hydronephrosis or hydroureter. IVC is unremarkable. Abdominal aorta is unremarkable for ag e. Bowel is unremarkable. Appendix is unremarkable. Urinary bladder is unremarkable. PAGE 1 Signed Report (C ONTINUED) Name: HERRERA BALDWIN [facility]ly [facility] : 1995 Age/S: 24 / F [id number] Unit #: [id number] Loc: [place] [address] Phys: Evelyn Casey Acct: [id number] Dis Date : Status: REG ER PHONE #: [phone] Exam Date: 09/25/2019 4422 FAX #: Reason: abdominal pain EXAMS: CPT: [id number] CT ABD PELVIS W/CONT [id number] <Continued> Uterus is normal in appearance and is retroverted. Bilateral ovar issa cysts. No tawanda opathy, free fluid, or free air. No abnormal mass, edema, or focal fluid collection. Abdominal-pelvic wall is int act. Skeletal structures are normal for patient age. No abnormal enhancing lesion is seen. Impression: 1. No specific evidenc e of acute pathology. 2. Retro verted uterus. Electronically Sign ed by Dena Dent on 09/25/2019 at 1916 R eported and signed by: Kevin anaya M.D. CC: Clara Casey MD; Brenda LINDQUIST Technologist:Sofy Waggoner, RT(R)(CT) CTDI: DLP: Trnscb Date/Time: 09/25/19 (1915) [email or web address] Orig Print D/T: S: 09/25/2019 () PAGE 2 Signed Report BASIC METABOLIC PANEL 2019-09-25 18:34:00 Test Item Value Reference Range Comments SODIUM (test code = NA) 138 mmol/L 134-147 POTASSIUM (test code = K) 3.7 mmol/L 3.4-5.0 CHLORIDE (test code = CL) 105 mmol/L 100-108 CARBON DIOXIDE (test code = CO2) 27 mmol/L 21-32 ANION GAP (test code = GAP) 6.0 GAP calc 4.0-15.0 GLUCOSE (test code = GLU) 124 MG/DL 70-110 BLOOD UREA NITROGEN (test code = BUN) 9 MG/DL 7-18 GLOMERULAR FILTRATION RATE (test code = GFR) >=60 max estimate e stGFR >60 CREATININE (test code = CREAT) 1.0 MG/DL 0.6-1.0 CALCIUM (test code = CA) 9.6 MG/DL 8.5-10.1 HEPATIC FUNCTION [id number] 18:34:00 Test Item Value Reference Range Comments TOTAL PROTEIN (test code = PROT) 8.6 G/DL 6.4-8.2 ALBUMIN (test code = ALB) 4.4 G/DL 3.4-5.0 BILIRUBIN TOTAL (test code = BILT) 0.30 MG/DL 0.2-1.2 BILIRUBIN DIRECT (test code = BILD) < 0.10 MG/DL 0.00-0.30 BILIRUBIN INDIRECT (test code = BILIND) 0.20 MG/DL 0.2-1.2 SGOT/AST (test code = AST) 74 Unit/L 15-37 SGPT/ALT (test code = ALT) 118 Unit/L 12-78 ALKALINE PHOSPHATASE TOTAL (test code = ALKP) 91 Unit/L 45 -117 [id number] 18:34:00 Test Item Value Reference Range Comments LIPASE (test code = LIP) 110 Unit/L 114-286 UA RFLX MICR CULT IF [id number] 18:32:00 Test Item Value Reference Range Comments UA COLOR (test code = COLU) LIGHT YELLOW discript YEL/STRAW UA APPEARANCE (test code = APPU) CLEAR discript CLEAR UA GLUCOSE DIPSTICK (test code = NEGATIVE mg/dL NEG DGLUU) UA BILIRUBIN DIPSTICK (test code = NEGATIVE mg/dL NEG BILU) UA KETONE DIPSTICK (test code = KETU) NEGATIVE mg/dL NEG UA SPECIFIC GRAVITY (test code = SGU) <=1.005 SG 1.005-1.03 0 UA BLOOD DIPSTICK (test code = FELIBERTO) 1+ mg/DL NEG UA PH DIPSTICK (test code = VISH) 5.5 pH UNITS 5.0-7.0 UA PROTEIN DIPSTICK (test code = PROU) NEGATIVE mg/dL NEG UA UROBILINIOGEN DIPSTICK (test code = 0.2 mg/dL <2.0 URO) UA NITRITE DIPSTICK (test code = RICARDO) NEGATIVE SCREEN NEG UA LEUKOCYTE ESTERASE DIPSTICK (test NEGATIVE Leuk/mcL NEGATIVE code = LEUU) UA WBC (test code = WBCU) 0-1 #WBC/HPF 0-3 UA RBC (test code = RBCU) 0-1 #RBC/HPF 0-3 UA BACTERIA (test code = BACU) NONE SEEN /HPF NONE-TRACE UA SQUAMOUS CELLS (test code = SQU) 1+ /HPF NONE UA CULTURE NEEDED? (test code = NO, WBC<10 Criteria Culture CHK UACULT) SOURCE OF URINE: CLEAN CATCHIndication for culture: Dysuria/FrequencyUR HCG [id number] 18:32:00 Test Item Value Reference Range Comments UR HCG QUAL (test code = HCGQLU) NEGATIVE NEGATIVE SOURCE OF URINE: CLEAN CATCHIndication for culture: Dysuria/FrequencyCBC W/AUTO [id number] 18:19:00 Test Item Value Reference Range Comments WHITE BLOOD CELL (test code = WBC) 21.1 K/mm3 3.5-11.0 RED BLOOD CELL (test code = RBC) 5.06 M/mm3 4.70-6.10 HEMOGLOBIN (test code = HGB) 15.2 G/DL 10.4-14.9 HEMATOCRIT (test code = HCT) 45.4 % 31.5-44.1 MEAN CELL VOLUME (test code = MCV) 89.7 Fl 84.5-98.6 MEAN CELL HGB (test code = MCH) 30.0 pg 27.0-34.2 MEAN CELL HGB CONCETRATION (test code = MCHC) 33.5 G/DL 31 .5-34.0 RED CELL DISTRIBUTION WIDTH (test code = RDW) 13.1 SD 11 .5-14.5 PLATELET COUNT (test code = PLT) 334.0 K/mm3 150-450 MEAN PLATELET VOLUME (test code = MPV) 10.30 fL 7.0-10.5 NEUTROPHIL % (test code = NT%) 90.6 % 40-76 LYMPHOCYTE % (test code = LY%) 5.9 % 20.5-51.1 MONOCYTE % (test code = MO%) 3.2 % 1.7-9.3 EOSINOPHIL % (test code = EO%) 0.3 % 0.0-6.0 BASOPHIL % (test code = BA%) 0.0 % 0.0-2.0 NEUTROPHIL # (test code = NT#) 19.08 K/mm3 1.8-7.6 LYMPHOCYTE # (test code = LY#) 1.2 K/mm3 0.6-3.2 MONOCYTE # (test code = MO#) 0.7 K/mm3 0.3-1.1 EOSINOPHIL # (test code = EO#) 0.1 K/mm3 0.0-0.4 BASOPHIL # (test code = BA#) 0.0 K/mm3 0.0-0.1 MANUAL DIFF REQUIRED (test code = MDIFF) NO DIFF/SCN CRITERI A UA RFLX MICR CULT IF [id number] 18:18:00 Test Item Value Reference Range Comments UA COLOR (test code = COLU) LIGHT YELLOW discript YEL/STRAW UA APPEARANCE (test code = APPU) CLEAR discript CLEAR UA GLUCOSE DIPSTICK (test code = NEGATIVE mg/dL NEG DGLUU) UA BILIRUBIN DIPSTICK (test code = NEGATIVE mg/dL NEG BILU) UA KETONE DIPSTICK (test code = KETU) NEGATIVE mg/dL NEG UA SPECIFIC GRAVITY (test code = SGU) <=1.005 SG 1.005-1.03 0 UA BLOOD DIPSTICK (test code = FELIBERTO) 1+ mg/DL NEG UA PH DIPSTICK (test code = VISH) 5.5 pH UNITS 5.0-7.0 UA PROTEIN DIPSTICK (test code = PROU) NEGATIVE mg/dL NEG UA UROBILINIOGEN DIPSTICK (test code = 0.2 mg/dL <2.0 URO) UA NITRITE DIPSTICK (test code = RICARDO) NEGATIVE SCREEN NEG UA LEUKOCYTE ESTERASE DIPSTICK (test NEGATIVE Leuk/mcL NEGATIVE code = LEUU) UA CULTURE NEEDED? (test code = Criteria Culture CHK UACULT) SOURCE OF URINE: CLEAN CATCHIndication for culture: Dysuria/Frequency
[2019-12-12] MEDS ORDERED: NA CHLORIDE 0.9% 1,000 ML ONE ×2 (02:07→03:35)
[2019-12-12] MEDS ORDERED: ONDANSETRON 4 MG/2 ML VIAL ONE (02:07)
[2019-12-12 03:08] LABS: Absolute Lymphocytes (CBC) 2.2 K/uL (0.7-4.9); Basophils % 0.2 % (0-1.3); Hematocrit 45.2 % (36.0-45.0); Lymphocytes % 16.2 % (15.3-44.8); RBC Red Blood Cell Count 5.15 M/uL (3.86-4.86)
[2019-12-12 03:18] LABS: Albumin 5.1 g/dL (3.4-5.0); Bilirubin Direct 0.1 mg/dL (0-0.2); Bilirubin Total 0.6 mg/dL (0.2-1.0); Potassium 3.4 mmol/L (3.5-5.1); Protein, Total 9.1 g/dL (6.4-8.2)
[2019-12-12] MEDS ORDERED: POTASSIUM 25 MEQ EFFERV TAB ONE (03:35)
[2019-12-12] MEDS ORDERED: LORAZEPAM 1 MG TABLET ONE (03:35)
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
[2019-12-12 04:34] VITALS: TEMP 97.7
[2019-12-12 04:42] VITALS: BP 118/93; O2SAT 97
== END 2019-12-12 04:09 | disposition home or self-care (01) ==
LOC: ER 01:50
DX: F11.23 Opioid dependence with withdrawal (principal); E87.6 Hypokalemia; F17.210 Nicotine dependence, cigarettes, uncomplicated; Z88.8 Allergy status to other drugs, medicaments and biological substances
CPT/HCPCS: 96361; 85025; 80048; 36415; 80076; 83690; 96374; 99284; J7030 ×2; J2405

== ENCOUNTER 2020-02-15 12:03 | Emergency (ER) | payer BC ==
[2020-02-15] MEDS ORDERED: HYDROCODONE/APAP 7.5/325 MG TAB ONE (12:47)
[2020-02-15] MEDS ORDERED: SMZ./TMP. 800/160 MG TABLET ONE (12:47)
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
[2020-02-15 13:14] VITALS: BP 112/77; TEMP 97.7; O2SAT 100
--- OUTSIDE RECORDS SUMMARY | 2020-02-15 14:14 | XMS REPORT | Continuity of Care Document ---
:1995 Author Organization [facility] t Address [address] [place] [address] Care Team Providers Name Role Phone Unavailable Unavailable Unavailable Payers Payer Name Policy Type Policy Number Effective Date Expiration Date S ource Problems This patient has no known problems. Allergies, Adverse Reactions, Alerts Allergy Allergy Status Severity Reaction(s) Onset Inactive Treating Comm ents Source Name Type Date Date Clinician quetiapi DA Active [place] [facility] ne 2-17 Clear 00:00: [address] Medications This patient has no known medications. Procedures This patient has no known procedures. Encounters Start End Encounter Admission Attending Care Care Encounter Source Date/Time Date/Time Type Type Clinicians Facility Department ID 2019-12-16 2019-12-16 Emergency E [facility] 7502 [facility]BL 06:23:00 06:23:00 2019-06-08 2019-06-08 Emergency E [facility] 7500 [facility]BL 20:13:00 20:13:00 Results Test Description Test Time Test Comments Results Result [facility] e Comments - US TRANSVAGINAL 2019-12-23 Name: HERRERA BALDWIN NON OB 08:48:00 [facility] : 1995 Age/S: 24 / F [address] Unit #: [id number] Loc: [place] [address] Phys: Gabbie Willis MD Acct: [id number] Dis Date: Status: REG ER PHONE #: [phone] Exam Date: 12/23/2019809 FAX #: Reason: RLQ PAIN EXAMS: CPT: [id number] [place] [address] LOCATION: T18 Transabdominal endovaginal pelvic ultrasound INDICATION: Pelvic pain The uterus measures 4.7 x 7.4, by 8.4 cm in length. Endometrium 11 mm thickness. No evidence of uterine mass or pelvic free fluid. Right ovary measures 17 x 22 x 34 mm, left ovary measures 34 x 36 x 31 mm and contains a 24 x 26 x 35 mm cyst. Vascular flow to both ovaries was demonstrated. Potential tubular structure in the left adnexal region noted on prior CT exam not visualized in this study. IMPRESSION: There is a 3.6 cm cyst in the left ovary containing some internal echoes. This may be a hemorrhagic cyst. Follow-up ultrasound in 4-6 weeks may be helpful. at 0848 Reported and signed by: Brendon Spence M.D. CC: Gabbie Willis MD Technologist: Tali Feliz Trnokb Date/Time: 12/23/2019 (0848) Felipe PAGE 1 Signed Report Name: BALDWIN,HERRERA [facility] : 1995 Age/S: 24 / F [address] [address] Unit #: [id number] Loc: [place] [address] Phys: Gabbie Willis MD Acct: [id number] Dis Date: Status: REG ER PHONE #: [phone] Exam Date: 12/23/201910 FAX #: Reason: RLQ PAIN EXAMS: CPT: [id number] [place] [address] <Continued> Orig Print D/T: S: 12/23/2019 (0851) Probe: [id number] PAGE 2 Signed Report - US PELVIC 2019-12-23 Name: BALDWINHERRERA COMPLETE 08:48:00 [facility] : 1995 Age/S: 24 / F [address] [address] Unit #: [id number] Loc: [place] [address] Phys: Gabbie Willis MD Acct: [id number] Dis Date: Status: REG ER PHONE #: [phone] Exam Date: 12/23/201910 FAX #: Reason: RLQ abd pain EXAMS: CPT: [id number] US PELVIC COMPLETE 47535 LOCATION: T18 Transabdominal endovaginal pelvic ultrasound INDICATION: Pelvic pain The uterus measures 4.7 x 7.4, by 8.4 cm in length. Endometrium 11 mm thickness. No evidence of uterine mass or pelvic free fluid. Right ovary measures 17 x 22 x 34 mm, left ovary measures 34 x 36 x 31 mm and contains a 24 x 26 x 35 mm cyst. Vascular flow to both ovaries was demonstrated. Potential tubular structure in the left adnexal region noted on prior CT exam not visualized in this study. IMPRESSION: There is a 3.6 cm cyst in the left ovary containing some internal echoes. This may be a hemorrhagic cyst. Follow-up ultrasound in 4-6 weeks may be helpful. at 0848 Reported and signed by: Brendon Spence M.D. CC: Gabbei Willis MD Technologist: Tali Feliz Trnscb Date/Time: 12/23/2019 (0848) EstellaJGOLDEN PAGE 1 Signed Report Name: HERRERA BALDWIN [facility] : 1995 Age/S: 24 / F [address] [address] Unit #: [id number] Loc: [place] [address] Phys: Gabbie Willis MD Acct: [id number] Dis Date: Status: REG ER PHONE #: [phone] Exam Date: 12/23/201910 FAX #: Reason: RLQ abd pain EXAMS: CPT: [id number] US PELVIC COMPLETE 00531 <Continued> Orig Print D/T: S: 12/23/2019 (0814) Probe: PAGE 2 Signed Report LACTIC ACID 2019-12-23 06:49:00 Test Item Value Reference Range Interpretation Comme nts LACTIC ACID (test code = LACT) 0.9 mmol/L 0.4-2.0 N UA RFLX MICR CULT IF [id number] 06:28:00 Test Item Value Reference Range Interpretation Comments UA COLOR (test code = COLU) YELLOW discript YEL/STRAW UA APPEARANCE (test code = CLEAR discript CLEAR APPU) UA GLUCOSE DIPSTICK (test NEGATIVE mg/dL NEG code = DGLUU) UA BILIRUBIN DIPSTICK (test NEGATIVE mg/dL NEG code = BILU) UA KETONE DIPSTICK (test TRACE mg/dL NEG code = KETU) UA SPECIFIC GRAVITY (test <=1.005 SG 1.005-1.030 code = SGU) UA BLOOD DIPSTICK (test NEGATIVE mg/DL NEG code = FELIBERTO) UA PH DIPSTICK (test code = 6.5 pH UNITS 5.0-7.0 VISH) UA PROTEIN DIPSTICK (test NEGATIVE mg/dL NEG code = PROU) UA UROBILINIOGEN DIPSTICK 0.2 mg/dL <2.0 (test code = URO) UA NITRITE DIPSTICK (test NEGATIVE SCREEN NEG code = RICARDO) UA LEUKOCYTE ESTERASE NEGATIVE Leuk/mcL NEGATIVE DIPSTICK (test code = LEUU) SOURCE OF URINE: MIDSTREAMIndication for culture: Suprapubic PainUR HCG QUAL 2019-12-23 06:28:00 Test Item Value Reference Range Interpretation Comments UR HCG QUAL (test code = HCGQLU) NEGATIVE NEGATIVE SOURCE OF URINE: MIDSTREAMIndication for culture: Suprapubic PainUA RFLX MICR CULT IF [id number] 06:27:00 Test Item Value Reference Range Interpretation Comments UA COLOR (test code = COLU) YELLOW discript YEL/STRAW UA APPEARANCE (test code = CLEAR discript CLEAR APPU) UA GLUCOSE DIPSTICK (test NEGATIVE mg/dL NEG code = DGLUU) UA BILIRUBIN DIPSTICK (test NEGATIVE mg/dL NEG code = BILU) UA KETONE DIPSTICK (test TRACE mg/dL NEG code = KETU) UA SPECIFIC GRAVITY (test <=1.005 SG 1.005-1.030 code = SGU) UA BLOOD DIPSTICK (test NEGATIVE mg/DL NEG code = FELIBERTO) UA PH DIPSTICK (test code = 6.5 pH UNITS 5.0-7.0 VISH) UA PROTEIN DIPSTICK (test NEGATIVE mg/dL NEG code = PROU) UA UROBILINIOGEN DIPSTICK 0.2 mg/dL <2.0 (test code = URO) UA NITRITE DIPSTICK (test NEGATIVE SCREEN NEG code = RICARDO) UA LEUKOCYTE ESTERASE NEGATIVE Leuk/mcL NEGATIVE DIPSTICK (test code = LEUU) UA CULTURE NEEDED? (test Criteria Culture CHK code = UACULT) SOURCE OF URINE: MIDSTREAMIndication for culture: Suprapubic PainUR HCG QUAL 2019-12-23 06:27:00 Test Item Value Reference Range Interpretation Comments UR HCG QUAL (test code = HCGQLU) NEGATIVE SOURCE OF URINE: MIDSTREAMIndication for culture: Suprapubic Pain- XR CHEST 1 [id number] 06:22:00 Name: HERRERA BALDWIN [facility] : 1995 Age/S: 24 / F [address] Unit #: [id number] Loc: [place] [address] Phys: Gabbie Willis MD Acct: [id number] Dis Date: Status: REG ER PHONE #: [phone] Exam Date: 12/23/2019 0608 FAX #: Reason: Suspected Sepsis EXAMS: CPT: [id number] XR CHEST 1 V 85176 Fluoro Time: DAP (Gy m2): Air Kerma (mGy): R16 EXAM: - XR CHEST 1 V HISTORY: Suspected Sepsis COMPARISON: 12/18/2019 FINDINGS: The lungs are clear. No pleural effusion or pneumothorax. The cardiac silhouette is within normal limits. No acute osseous abnormalities. IMPRESSION: No acute cardio pulmonary disease. at 0622 Reported and signed by: Yaya Moe M.D. CC: Gabbie Willis MD PAGE 1 Signed Report Name: HERRERA BALDWIN [facility] : 1995 Age/S: 24 / F [address] [address] Unit #: [id number] Loc: [place] [address] Phys: Gabbie iWllis MD Acct: [id number] Dis Date: Status: REG ER PHONE #: [phone] Exam Date: 12/23/2019 0608 FAX #: Reason: Suspected Sepsis EXAMS: CPT: [id number] XR CHEST 1 V 84331 Fluoro Time: DAP (Gy m2): Air Kerma (mGy): <Continued> Technologist: RT Alisa(R) Trnscb Date/Time: 12/23/2019 (621) EstellaVB7 Orig Print D/T: S: 12/23/2019 (2322) PAGE 2 Signed [id number] 06:21:00 Test Item Value Reference Range Interpretation Comments TROPONIN-I (test < 0.015 NG/ML 0.000-0.045 N Negative: </= 0.045 code = TROPI) Positive: >/= 0.046 Correlation wit h serial results, other cardiac markers, and cl inical findings is nec essary to determine the c linical significance of this result. Quantit ative results using d ifferent methodologies s hould not be compared to one another as nume rical results may angelique yby method. Completed by Nursing: NO- CT ABD PELVIS [id number] 05:53:00 Name: HERRERA BALDWIN [facility] : 1995 Age/S: 24 / F [address] [address] Unit #: [id number] Loc: [place] [address] Phys: Gabbie Willis MD Acct: [id number] Dis Date: Status: REG ER PHONE #: [phone] Exam Date: 12/23/2019 0527 FAX #: Reason: rlq abdttp EXAMS: CPT: [id number] CT ABD PELVIS W/CONT 90937 AFTER HOURS SERVICE ON: 12/23/2019 5:[address] Scan of the Abdomen and Pelvis With Contrast Location Code M12 History: rlq abd ttp Technique: Axial and reconstructed coronal scans were performed on a helical scanner post IV contrast. Oneor more of the following dose reduction techniques were used: Automated exposure control, adjus tment of the mA and/or kV according to patient size, and/or utilization of iterative reconstruction technique. Findings: LIVER: No significant findings. GALLBLADDER/BILIARY: No significant findings. PANCREAS: No significant findings. SPLEEN: No significant findings. ADRENALS: No significant findings. KIDNEYS: No hydronephrosis. BLADDER: No significant findings. GASTROINTESTINAL: No significant findings. The appendix is unremarkable. OTHER: Uterus is unremarkable. There is a 3.9 cm left ovarian cyst. Mildly dilated tubular structure is noted posterior to the left ovary, likely a smallhydrosalpinx. Trace free fluid is noted in the posterior cul-de-sac. IMPRESSION: Normal appendix and bowel. 3.9 cm left ovarian cyst. Small tubular structure posterior to the cyst may be consistent with hydrosalpinx. Consider follow-up ultrasound. at 0553 Reported and signed by: Esequiel Boykin M.D. PAGE 1 Signed Report (CONTINUED) Name: HERRERA BALDWIN [facility] : 1995 Age/S: 24 / F [address] [address] Unit #: [id number] Loc: [place] [address] Phys: Gabbie Willis MD Acct: [id number] Dis Date: Status: REG ER PHONE #: [phone] Exam Date: 12/23/2019 0502 FAX #: Reason: rlq abd ttp EXAMS: CPT: [id number] CT ABD PELVIS W/CONT 52506 <Continued> CC: Gabbie Willis MD Technologist:Henry Waggoner, RT(R) CTDI: DLP: Trnscb Date/Time: 12/23/2019 (0553) [email or web address] Orig Print D/T: S: 12/23/2019 (0556) PAGE 2 Signed ReportBASIC METABOLIC [id number] 05:42:00 Test Item Value Reference Range Interpretation Comments SODIUM (test code = NA) 138 mmol/L 134-147 N POTASSIUM (test code = 3.4 mmol/L 3.4-5.0 N K) CHLORIDE (test code = 105 mmol/L 100-108 N CL) CARBON DIOXIDE (test 27 mmol/L 21-32 N code = CO2) ANION GAP (test code = 6.0 GAP calc 4.0-15.0 N GAP) GLUCOSE (test code = 106 MG/DL 70-110 N GLU) BLOOD UREA NITROGEN 6 MG/DL 7-18 L (test code = BUN) GLOMERULAR FILTRATION >=60 max estimate >60 RATE (test code = GFR) estGFR CREATININE (test code = 0.9 MG/DL 0.6-1.0 N CREAT) CALCIUM (test code = CA) 9.4 MG/DL 8.5-10.1 N HEPATIC FUNCTION [id number] 05:42:00 Test Item Value Reference Range Interpretation Comments TOTAL PROTEIN (test code = PROT) 8.2 G/DL 6.4-8.2 N ALBUMIN (test code = ALB) 4.5 G/DL 3.4-5.0 N BILIRUBIN TOTAL (test code = BILT) 0.90 MG/DL 0.2-1.2 N BILIRUBIN DIRECT (test code = 0.20 MG/DL 0.00-0.30 N BILD) BILIRUBIN INDIRECT (test code = 0.70 MG/DL 0.2-1.2 N BILIND) SGOT/AST (test code = AST) 19 Unit/L 15-37 N SGPT/ALT (test code = ALT) 20 Unit/L 12-78 N ALKALINE PHOSPHATASE TOTAL (test 75 Unit/L 45-117 N code = ALKP) [id number] 05:42:00 Test Item Value Reference Range Interpretation Comments LIPASE (test code = LIP) 90 Unit/L 114-286 L BASIC METABOLIC [id number] 05:30:00 Test Item Value Reference Range Interpretation Comments SODIUM (test code = NA) 138 mmol/L 134-147 N POTASSIUM (test code = K) 3.4 mmol/L 3.4-5.0 N CHLORIDE (test code = CL) 105 mmol/L 100-108 N CARBON DIOXIDE (test code = CO2) 27 mmol/L 21-32 N ANION GAP (test code = GAP) 6.0 GAP calc 4.0-15.0 N GLUCOSE (test code = GLU) 106 MG/DL 70-110 N BLOOD UREA NITROGEN (test code = 6 MG/DL 7-18 L BUN) GLOMERULAR FILTRATION RATE (test estGFR >60 code = GFR) CREATININE (test code = CREAT) MG/DL 0.6-1.0 CALCIUM (test code = CA) 9.4 MG/DL 8.5-10.1 N HEPATIC FUNCTION [id number] 05:30:00 Test Item Value Reference Range Interpretation Comments TOTAL PROTEIN (test code = PROT) G/DL 6.4-8.2 ALBUMIN (test code = ALB) G/DL 3.4-5.0 BILIRUBIN TOTAL (test code = BILT) MG/DL 0.2-1.2 BILIRUBIN DIRECT (test code = BILD) MG/DL 0.00-0.30 BILIRUBIN INDIRECT (test code = MG/DL 0.2-1.2 BILIND) SGOT/AST (test code = AST) Unit/L 15-37 SGPT/ALT (test code = ALT) Unit/L 12-78 ALKALINE PHOSPHATASE TOTAL (test code Unit/L 45-117 = ALKP) [id number] 05:30:00 Test Item Value Reference Range Interpretation Comments LIPASE (test code = LIP) 90 Unit/L 114-286 L CBC W/AUTO [id number] 05:23:00 Test Item Value Reference Range Interpretation Comments WHITE BLOOD CELL (test code = 16.1 K/mm3 3.5-11.0 H WBC) RED BLOOD CELL (test code = RBC) 4.97 M/mm3 4.70-6.10 N HEMOGLOBIN (test code = HGB) 14.3 G/DL 10.4-14.9 N HEMATOCRIT (test code = HCT) 44.7 % 31.5-44.1 H MEAN CELL VOLUME (test code = 89.9 Fl 84.5-98.6 N MCV) MEAN CELL HGB (test code = MCH) 28.8 pg 27.0-34.2 N MEAN CELL HGB CONCETRATION (test 32.0 G/DL 31.5-34.0 N code = MCHC) RED CELL DISTRIBUTION WIDTH (test 13.7 SD 11.5-14.5 N code = RDW) PLATELET COUNT (test code = PLT) 345.0 K/mm3 150-450 N MEAN PLATELET VOLUME (test code = 10.20 fL 7.0-10.5 N MPV) NEUTROPHIL % (test code = NT%) 83.3 % 40-76 H LYMPHOCYTE % (test code = LY%) 9.4 % 20.5-51.1 L MONOCYTE % (test code = MO%) 6.3 % 1.7-9.3 N EOSINOPHIL % (test code = EO%) 0.9 % 0.0-6.0 N BASOPHIL % (test code = BA%) 0.1 % 0.0-2.0 N NEUTROPHIL # (test code = NT#) 13.43 K/mm3 1.8-7.6 H LYMPHOCYTE # (test code = LY#) 1.5 K/mm3 0.6-3.2 N MONOCYTE # (test code = MO#) 1.0 K/mm3 0.3-1.1 N EOSINOPHIL # (test code = EO#) 0.2 K/mm3 0.0-0.4 N BASOPHIL # (test code = BA#) 0.0 K/mm3 0.0-0.1 N MANUAL DIFF REQUIRED (test code = NO DIFF/SCN CRITERIA MDIFF) - CT UP EXTREM W/CONT [id number] 19:14:00 Name: HERRERA BALDWIN [facility] : 1995 Age/S: 24 / F [address] [address] Unit #: [id number] Loc: [place] [address] Phys: Aston Matthews MD Acct: [id number] Dis Date: Status: REG ER PHONE #: [phone] Exam Date: 12/18/2019 5759 FAX #: Reason: spider b ite, swelling, failed outpatient therap EXAMS: CPT: [id number] CT UP EXTREM W/[place] [address] CT right upper extremity History: spider bite, swelling, failed outpatient therapy Comparison: None at this time Location: R16 One or more of the following radiation dose reduction techniques was used: automated exposure control, adjustment of mA and/or KV according to patient size, and/or utilization of iterative reconstruction technique. Quality of Exam: Acceptable. Noncontrast CT scan of the right forearm was performed, with intravenous contrast. No acute fracture and no dislocation is identified. No bone destructive process is identified. The soft tissues are unremarkable. No abnormal localized fluid collection is identified. IMPRESSION: Unremarkable exam. at 1914 Reported and signed by: Subhash Santiago M.D. CC: Amy Claudio LEAF FAT SCRAPER; Aston Matthews MD Technologist:Rose Mary Waggoner RT(R)(CT) CTDI: DLP: Trnscb Date/Time: 12/18/2019 (1913) EstellaPMT Orig Print D/T: S: 12/18/2019 (1916) PAGE 1 Signed ReportCOMPREHENSIVE METABOLIC [id number] 17:43:00 Test Item Value Reference Range Interpretation Comments SODIUM (test code = NA) 138 mmol/L 134-147 N POTASSIUM (test code = 3.7 mmol/L 3.4-5.0 N K) CHLORIDE (test code = 105 mmol/L 100-108 N CL) CARBON DIOXIDE (test 27 mmol/L 21-32 N code = CO2) ANION GAP (test code = 6.0 GAP calc 4.0-15.0 N GAP) GLUCOSE (test code = 96 MG/DL 70-110 N GLU) BLOOD UREA NITROGEN 8 MG/DL 7-18 N (test code = BUN) GLOMERULAR FILTRATION >=60 max estimate >60 RATE (test code = GFR) estGFR CREATININE (test code = 0.8 MG/DL 0.6-1.0 N CREAT) TOTAL PROTEIN (test code 7.7 G/DL 6.4-8.2 N = PROT) ALBUMIN (test code = 4.2 G/DL 3.4-5.0 N ALB) GLOBULIN (test code = 3.5 GM/dL GLOB) ALBUMIN/GLOBULIN RATIO 1.2 RATIO 1.2-2.2 N (test code = A/G) CALCIUM (test code = CA) 8.6 MG/DL 8.5-10.1 N BILIRUBIN TOTAL (test 0.40 MG/DL 0.2-1.2 N code = BILT) SGOT/AST (test code = 14 Unit/L 15-37 L AST) SGPT/ALT (test code = 17 Unit/L 12-78 N ALT) ALKALINE PHOSPHATASE 78 Unit/L 45-117 N TOTAL (test code = ALKP) LACTIC [id number] 17:43:00 Test Item Value Reference Range Interpretation Comments LACTIC ACID (test code = LACT) 1.3 mmol/L 0.4-2.0 N CBC W/AUTO [id number] 17:21:00 Test Item Value Reference Range Interpretation Comments WHITE BLOOD CELL (test code = 12.8 K/mm3 3.5-11.0 H WBC) RED BLOOD CELL (test code = RBC) 4.44 M/mm3 4.70-6.10 L HEMOGLOBIN (test code = HGB) 12.8 G/DL 10.4-14.9 N HEMATOCRIT (test code = HCT) 40.1 % 31.5-44.1 N MEAN CELL VOLUME (test code = 90.3 Fl 84.5-98.6 N MCV) MEAN CELL HGB (test code = MCH) 28.8 pg 27.0-34.2 N MEAN CELL HGB CONCETRATION (test 31.9 G/DL 31.5-34.0 N code = MCHC) RED CELL DISTRIBUTION WIDTH (test 13.3 SD 11.5-14.5 N code = RDW) PLATELET COUNT (test code = PLT) 319.0 K/mm3 150-450 N MEAN PLATELET VOLUME (test code = 10.50 fL 7.0-10.5 N MPV) NEUTROPHIL % (test code = NT%) 73.8 % 40-76 N LYMPHOCYTE % (test code = LY%) 18.0 % 20.5-51.1 L MONOCYTE % (test code = MO%) 6.3 % 1.7-9.3 N EOSINOPHIL % (test code = EO%) 1.8 % 0.0-6.0 N BASOPHIL % (test code = BA%) 0.1 % 0.0-2.0 N NEUTROPHIL # (test code = NT#) 9.42 K/mm3 1.8-7.6 H LYMPHOCYTE # (test code = LY#) 2.3 K/mm3 0.6-3.2 N MONOCYTE # (test code = MO#) 0.8 K/mm3 0.3-1.1 N EOSINOPHIL # (test code = EO#) 0.2 K/mm3 0.0-0.4 N BASOPHIL # (test code = BA#) 0.0 K/mm3 0.0-0.1 N MANUAL DIFF REQUIRED (test code = NO DIFF/SCN CRITERIA MDIFF) UR HCG [id number] 17:20:00 Test Item Value Reference Range Interpretation Comments UR HCG QUAL (test code = HCGQLU) NEGATIVE NEGATIVE - XR CHEST 1 [id number] 17:18:00 Name: HERRERA BALDWIN [facility] : 1995 Age/S: 24 / F [id number] [address] Unit #: [id number] Loc: [place] [address] Phys: Aston Matthews MD Acct: [id number] Dis Date: Status: REG ER PHONE #: [phone] Exam Date: 12/18/20191714 FAX #: Reason: Suspected Sepsis EXAMS: CPT: [id number] XR CHEST 1 V 12594 Fluoro Time: DAP (Gy m2): Air Kerma (mGy): Site ID: [id number] HISTORY: Suspectedsepsis FINDINGS: The lungs are clear and normally expanded. The heart and pulmonary vasculature is normal. Osseous structures are unremarkable. IMPRESSION: Negative chest X-ray. at 1718 Reported and signed by: Elton Sams M.D. CC: Amy Claudio LEAF FAT SCRAPER; Aston Matthews MD PAGE 1 Signed Report Name: HERRERA BALDWIN [place] : 1995 Age/S: 24 / F [address] [address] Unit #: [id number] Loc: [place] [address] Phys: Aston Matthews MD Acct: [id number] Dis Date: Status: REG ER PHONE #: [phone] Exam Date: 12/18/2019 1715 FAX #: Reason: Suspected Sepsis EXAMS: CPT: [id number] XR CHEST 1 V 00587 Fluoro Time: DAP (Gy m2): Air Kerma (mGy): <Continued> Technologist: Fatou Marin RT(R)(CT) Trnokb Date/Time: 12/18/2019 (1718) [email or web address] Orig Print D/T: S: 12/18/2019 (1721) PAGE 2 Signed Report- CT ABD PELVIS [id number] 19:16:00 Name: HERRERA BALDWIN [place] : 1995 Age/S: 24 / F [address] [address] Unit #: [id number] Loc: [place] [address] Phys: Evelyn Casey MD Acct: [id number] Dis Date: Status: REG ER PHONE #: [phone] Exam Date: 09/25/2019 185 FAX #: Reason: abdominal pain EXAMS: CPT: [id number] CT ABD PELVIS W/CONT 08572 Location code: B2 CT Abdomen and Pelvis [...] glands are unremarkable. The pancreas is unremarkable. Kidneysare normal in appearance. No hydronephrosis or hydroureter. IVC is unremarkable. Abdominal aorta is unremarkable for age. Bowel is unremarkable. Appendix is unremarkable. Urinary bladder is unremarkable. PAGE 1 Signed Report (CONTINUED) Name: HERRERA BALDWIN [facility] : 1995 Age/S: 24 / F [address] [address] Unit #: [id number] Loc: [place] [address] Phys: Evelyn Casey MD Acct: [id number] Dis Date: Status: REG ER PHONE #: [phone] Exam Date: 09/25/2019 5318 FAX #: Reason: abdominal pain EXAMS: CPT: [id number] CT ABD PELVIS W/CONT 03077 <Continued> Uterus is normal in appearance and is retroverted. Bilateral ovarian cysts. No adenopathy, free fluid, or free air. No abnormal mass, edema, or focal fluid collection. Abdominal-pelvic wall isintact. Skeletal structures are normal for patient age. No abnormal enhancing lesion is seen. Impression: 1. No specific evidence of acute pathology. 2. Retroverted uterus. at 1916 Reported and signed by: Kevin Dent M.D. CC: Evelyn Casey MD; Brenda LINDQUIST Technologist:Rose Mary Waggoner, RT(R)(CT) CTDI: DLP: Trnscb Date/Time: 09/25/2019 (1915) [email or web address] Orig Print D/T: S: 09/25/2019 (1918) PAGE 2 Signed ReportBASIC METABOLIC [id number] 18:34:00 Test Item Value Reference Range Interpretation Comments SODIUM (test code = NA) 138 mmol/L 134-147 N POTASSIUM (test code = 3.7 mmol/L 3.4-5.0 N K) CHLORIDE (test code = 105 mmol/L 100-108 N CL) CARBON DIOXIDE (test 27 mmol/L 21-32 N code = CO2) ANION GAP (test code = 6.0 GAP calc 4.0-15.0 N GAP) GLUCOSE (test code = 124 MG/DL 70-110 H GLU) BLOOD UREA NITROGEN 9 MG/DL 7-18 N (test code = BUN) GLOMERULAR FILTRATION >=60 max estimate >60 RATE (test code = GFR) estGFR CREATININE (test code = 1.0 MG/DL 0.6-1.0 N CREAT) CALCIUM (test code = CA) 9.6 MG/DL 8.5-10.1 N HEPATIC FUNCTION [id number] 18:34:00 Test Item Value Reference Range Interpretation Comments TOTAL PROTEIN (test code = PROT) 8.6 G/DL 6.4-8.2 H ALBUMIN (test code = ALB) 4.4 G/DL 3.4-5.0 N BILIRUBIN TOTAL (test code = 0.30 MG/DL 0.2-1.2 N BILT) BILIRUBIN DIRECT (test code = < 0.10 MG/DL 0.00-0.30 N BILD) BILIRUBIN INDIRECT (test code = 0.20 MG/DL 0.2-1.2 N BILIND) SGOT/AST (test code = AST) 74 Unit/L 15-37 H SGPT/ALT (test code = ALT) 118 Unit/L 12-78 H ALKALINE PHOSPHATASE TOTAL (test 91 Unit/L 45-117 N code = ALKP) [id number] 18:34:00 Test Item Value Reference Range Interpretation Comments LIPASE (test code = LIP) 110 Unit/L 114-286 L UA RFLX MICR CULT IF [id number] 18:32:00 Test Item Value Reference Range Interpretation Comments UA COLOR (test code = LIGHT YELLOW YEL/STRAW COLU) discript UA APPEARANCE (test code CLEAR discript CLEAR = APPU) UA GLUCOSE DIPSTICK (test NEGATIVE mg/dL NEG code = DGLUU) UA BILIRUBIN DIPSTICK NEGATIVE mg/dL NEG (test code = BILU) UA KETONE DIPSTICK (test NEGATIVE mg/dL NEG code = KETU) UA SPECIFIC GRAVITY (test <=1.005 SG 1.005-1.030 code = SGU) UA BLOOD DIPSTICK (test 1+ mg/DL NEG A code = FELIBERTO) UA PH DIPSTICK (test code 5.5 pH UNITS 5.0-7.0 = VISH) UA PROTEIN DIPSTICK (test NEGATIVE mg/dL NEG code = PROU) UA UROBILINIOGEN DIPSTICK 0.2 mg/dL <2.0 (test code = URO) UA NITRITE DIPSTICK (test NEGATIVE SCREEN NEG code = RICARDO) UA LEUKOCYTE ESTERASE NEGATIVE Leuk/mcL NEGATIVE DIPSTICK (test code = LEUU) UA WBC (test code = WBCU) 0-1 #WBC/HPF 0-3 UA RBC (test code = RBCU) 0-1 #RBC/HPF 0-3 UA BACTERIA (test code = NONE SEEN /HPF NONE-TRACE BACU) UA SQUAMOUS CELLS (test 1+ /HPF NONE A code = SQU) UA CULTURE NEEDED? (test NO, WBC<10 Criteria Culture CHK code = UACULT) SOURCE OF URINE: CLEAN CATCHIndication for culture: Dysuria/FrequencyUR HCG [id number] 18:32:00 Test Item Value Reference Range Interpretation Comments UR HCG QUAL (test code = HCGQLU) NEGATIVE NEGATIVE SOURCE OF URINE: CLEAN CATCHIndication for culture: Dysuria/FrequencyCBC W/AUTO [id number] 18:19:00 Test Item Value Reference Range Interpretation Comments WHITE BLOOD CELL (test code = 21.1 K/mm3 3.5-11.0 H WBC) RED BLOOD CELL (test code = RBC) 5.06 M/mm3 4.70-6.10 N HEMOGLOBIN (test code = HGB) 15.2 G/DL 10.4-14.9 H HEMATOCRIT (test code = HCT) 45.4 % 31.5-44.1 H MEAN CELL VOLUME (test code = 89.7 Fl 84.5-98.6 N MCV) MEAN CELL HGB (test code = MCH) 30.0 pg 27.0-34.2 N MEAN CELL HGB CONCETRATION (test 33.5 G/DL 31.5-34.0 N code = MCHC) RED CELL DISTRIBUTION WIDTH (test 13.1 SD 11.5-14.5 N code = RDW) PLATELET COUNT (test code = PLT) 334.0 K/mm3 150-450 N MEAN PLATELET VOLUME (test code = 10.30 fL 7.0-10.5 N MPV) NEUTROPHIL % (test code = NT%) 90.6 % 40-76 H LYMPHOCYTE % (test code = LY%) 5.9 % 20.5-51.1 L MONOCYTE % (test code = MO%) 3.2 % 1.7-9.3 N EOSINOPHIL % (test code = EO%) 0.3 % 0.0-6.0 N BASOPHIL % (test code = BA%) 0.0 % 0.0-2.0 N NEUTROPHIL # (test code = NT#) 19.08 K/mm3 1.8-7.6 H LYMPHOCYTE # (test code = LY#) 1.2 K/mm3 0.6-3.2 N MONOCYTE # (test code = MO#) 0.7 K/mm3 0.3-1.1 N EOSINOPHIL # (test code = EO#) 0.1 K/mm3 0.0-0.4 N BASOPHIL # (test code = BA#) 0.0 K/mm3 0.0-0.1 N MANUAL DIFF REQUIRED (test code = NO DIFF/SCN CRITERIA MDIFF) UA RFLX MICR CULT IF [id number] 18:18:00 Test Item Value Reference Range Interpretation Comments UA COLOR (test code = LIGHT YELLOW YEL/STRAW COLU) discript UA APPEARANCE (test code CLEAR discript CLEAR = APPU) UA GLUCOSE DIPSTICK (test NEGATIVE mg/dL NEG code = DGLUU) UA BILIRUBIN DIPSTICK NEGATIVE mg/dL NEG (test code = BILU) UA KETONE DIPSTICK (test NEGATIVE mg/dL NEG code = KETU) UA SPECIFIC GRAVITY (test <=1.005 SG 1.005-1.030 code = SGU) UA BLOOD DIPSTICK (test 1+ mg/DL NEG A code = FELIBERTO) UA PH DIPSTICK (test code 5.5 pH UNITS 5.0-7.0 = VISH) UA PROTEIN DIPSTICK (test NEGATIVE mg/dL NEG code = PROU) UA UROBILINIOGEN DIPSTICK 0.2 mg/dL <2.0 (test code = URO) UA NITRITE DIPSTICK (test NEGATIVE SCREEN NEG code = RICARDO) UA LEUKOCYTE ESTERASE NEGATIVE Leuk/mcL NEGATIVE DIPSTICK (test code = LEUU) UA CULTURE NEEDED? (test Criteria Culture CHK code = UACULT) SOURCE OF URINE: CLEAN CATCHIndication for culture: Dysuria/Frequency
== END 2020-02-15 13:07 | disposition home or self-care (01) ==
LOC: ER 12:03
DX: L02.31 Cutaneous abscess of buttock (principal); L02.412 Cutaneous abscess of left axilla; L02.211 Cutaneous abscess of abdominal wall; F17.210 Nicotine dependence, cigarettes, uncomplicated; Z88.8 Allergy status to other drugs, medicaments and biological substances
CPT/HCPCS: 99283